=== PATIENT | male | born 1975 | race Caucasian/White ===

== ENCOUNTER 2019-08-26 12:17 | Inpatient (IN) | payer MEDICAID ==
[~2019-08-26] VITALS: Ht 185.4 cm; Wt 115.9 kg
[2019-08-26] MEDS ORDERED: labetalol 20mg/4ml (5mg/ml) syringe IV PRN (12:40)
[2019-08-26 13:02] LABS: BASOPHILS % (AUTO) 0.2 % (0-1); EOSINOPHILS # (AUTO) 0.1 X10'3 (0-0.9); EOSINOPHILS % (AUTO) 1.8 % (0-6); HEMATOCRIT 44.8 % (42.0-52.0); HEMOGLOBIN 15.3 g/dl (14.0-17.9); LYMPHOCYTES # (AUTO) 1.6 X10'3 (1.1-4.8); LYMPHOCYTES % (AUTO) 21.3 % (21-51); MEAN CORPUSCULAR HEMOGLOBIN 28.1 PG (27.0-31.0); MEAN CORPUSCULAR HGB CONC 34.1 g/dL (33.0-36.5); MEAN CORPUSCULAR VOLUME 82.3 FL (78-98); MEAN PLATELET VOLUME 8.9 FL (7.4-10.4); MONOCYTES # (AUTO) 0.4 X10'3 (0-0.9); NEUTROPHILS # (AUTO) 5.6 X10'3 (1.8-7.7); NEUTROPHILS % (AUTO) 71.7 % (42-75); PLATELET COUNT 188 X10'3 (140-440); RED BLOOD COUNT 5.44 X10'6 (4.70-6.10); RED CELL DISTRIBUTION WIDTH 14.4 % (11.5-14.5); WHITE BLOOD COUNT 7.8 X10'3 (4.5-11.0)
[2019-08-26 13:07] LABS: PARTIAL THROMBOPLASTIN TIME 25 SECONDS (22-32)
[2019-08-26 13:09] LABS: ALANINE AMINOTRANSFERASE 47 U/L (12-78); ALBUMIN 4.3 G/DL (3.4-5.0); ALKALINE PHOSPHATASE 90 IU/L (46-116); ANION GAP 9 (8-16); ASPARTATE AMINO TRANSFERASE 27 U/L (10-37); BILIRUBIN,TOTAL 0.8 MG/DL (0.1-1.0); BLOOD UREA NITROGEN 11 MG/DL (7-18); BUN/CREATININE RATIO 11.8 (5.4-32.0); CALCIUM 9.2 MG/DL (8.5-10.1); CHLORIDE 105 MMOL/L (99-107); CREATININE 0.93 MG/DL (0.60-1.10); GLUCOSE 122 MG/DL (70-104); POTASSIUM 3.5 MMOL/L (3.5-5.1); SODIUM 140 MMOL/L (135-145); TOTAL CARBON DIOXIDE 26.1 MMOL/L (24-32); TOTAL PROTEIN 8.6 G/DL (6.4-8.2); eGFR 88 ML/MIN
--- NOTE | 2019-08-26 13:24 | NUR ---
TELE NEURO IN PROGRESS.
[2019-08-26] MEDS ORDERED: aspirin 81mg tab.chew PO ONE (13:40)
[2019-08-26] MEDS ORDERED: MULT-955 PO (13:44)
[2019-08-26] MEDS ORDERED: ASPI-1265 PO (13:44)
[2019-08-26 13:53] LABS: CLARITY,URINE CLEAR (Clear); COLOR,URINE YELLOW (Yellow); GLUCOSE, URINE NEGATIVE (Neg); KETONES,URINE NEGATIVE (Neg); LEUKOCYTE ESTERASE ,URINE NEGATIVE (Neg); NITRITES, URINE NEGATIVE (Neg); OCCULT BLOOD,URINE NEGATIVE (Neg); PROTEIN,URINE NEGATIVE (Neg)
[2019-08-26 13:55] LABS: UA COLLECTION TYPE VOIDED
[2019-08-26 13:56] LABS: URINE AMPHETAMINE SCREEN NEGATIVE (Neg); URINE BARBITUATE SCREEN NEGATIVE (Neg); URINE BENZODIAZEPINES SCREEN NEGATIVE (Neg); URINE CANNABINOID SCREEN NEGATIVE (Neg); URINE COCAINE SCREEN NEGATIVE (Neg); URINE METHADONE SCREEN NEGATIVE (Neg); URINE OPIATE SCREEN NEGATIVE (Neg); URINE PHENCYCLIDINE SCREEN NEGATIVE (Neg)
[2019-08-26] MEDS ORDERED: magnesium 4gm in 100ml NS 100 ML IV PRN (15:00)
[2019-08-26] MEDS ORDERED: diphenhydrAMINE 50 mg/ml inj IV PRN (15:00)
[2019-08-26] MEDS ORDERED: bisacodyl 10mg suppository rectal RC PRN (15:00)
[2019-08-26] MEDS ORDERED: HYDROcodone/acetaminophen 5mg/325mg tablet PO PRN (15:00)
[2019-08-26] MEDS ORDERED: mag hydrox/Alum hydrox/simeth 30ml oral suspension PO PRN (15:00)
[2019-08-26] MEDS ORDERED: ondansetron/PF 4mg/2ml inj IV PRN (15:00)
[2019-08-26] MEDS ORDERED: metoclopramide 5 mg/ml inj IV PRN (15:00)
[2019-08-26] MEDS ORDERED: magnesium 2GM in 50ml NS 50 ML IV PRN (15:00)
[2019-08-26] MEDS ORDERED: acetaminophen 325mg tablet PO PRN ×2 (15:00)
[2019-08-26] MEDS ORDERED: diphenhydrAMINE 25mg capsule PO PRN (15:00)
[2019-08-26] MEDS ORDERED: magnesium hydroxide 30ml (MOM) UD suspension PO PRN (15:00)
[2019-08-26] MEDS ORDERED: potassium CL 10mEq/100ml bag 100 ML IV PRN ×2 (15:00)
[2019-08-26] MEDS ORDERED: magnesium Cl slow-release 64mg tablet PO PRN (15:00)
[2019-08-26] MEDS ORDERED: potassium Cl 20 mEq SR tablet PO PRN (15:00)
[2019-08-26] MEDS ORDERED: acetaminophen 650mg rectal suppository RC PRN (15:00)
--- NOTE | 2019-08-26 15:06 | NUR ---
report received from Karo COOL in the ER
[2019-08-26 15:30] VITALS: BP 180/102
[2019-08-26 15:32] LABS: HEMOGLOBIN A1C 5.8 % (4.5-6.2)
--- NOTE | 2019-08-26 15:46 | NUR ---
Paged hospitalist: [phone] patient needs Ativan or Xanax for MRI please, will continue to monitor
[2019-08-26] MEDS ORDERED: LORazepam 2 mg/ml vial IV PRN (16:10)
[2019-08-26 18:00] VITALS: BP 154/102
--- NOTE | 2019-08-26 18:15 | NUR ---
RECEIVED REPORT FROM UTE COOL AND ASSUMED PATIENT CARE
[2019-08-26] MEDS: K and/or MAG REPLACEMENT MC SCH (20:00)
[2019-08-26] MEDS ORDERED: temazepam 15mg capsule PO PRN (21:00)
[2019-08-26 22:00] VITALS: BP 157/11
[2019-08-27 02:00] VITALS: BP 166/67
[2019-08-27 06:00] VITALS: BP 150/105
--- NOTE | 2019-08-27 06:05 | NUR ---
received report from harvinder rosado
--- NOTE | 2019-08-27 06:20 | NUR ---
REPORT GIVEN TO MARGO COOL
[2019-08-27 06:30] LABS: HEMATOCRIT 40.3 % (42.0-52.0); HEMOGLOBIN 14.1 g/dl (14.0-17.9); MEAN CORPUSCULAR HEMOGLOBIN 28.4 PG (27.0-31.0); MEAN CORPUSCULAR VOLUME 81.3 FL (78-98); PLATELET COUNT 176 X10'3 (140-440); RED BLOOD COUNT 4.96 X10'6 (4.70-6.10); RED CELL DISTRIBUTION WIDTH 14.3 % (11.5-14.5); WHITE BLOOD COUNT 7.6 X10'3 (4.5-11.0)
[2019-08-27 06:49] LABS: ALBUMIN 3.7 G/DL (3.4-5.0); ANION GAP 10 (8-16); BLOOD UREA NITROGEN 10 MG/DL (7-18); BUN/CREATININE RATIO 13.3 (5.4-32.0); CALCIUM 8.8 MG/DL (8.5-10.1); CHLORIDE 106 MMOL/L (99-107); CHOLESTEROL 193 MG/DL (0-200); CREATININE 0.75 MG/DL (0.60-1.10); GLUCOSE 97 MG/DL (70-104); HDL CHOLESTEROL 48 MG/DL (35-60); LDL CHOLESTEROL 122 MG/DL (50-100); MAGNESIUM 1.9 MG/DL (1.5-2.4); POTASSIUM 3.4 MMOL/L (3.5-5.1); SODIUM 141 MMOL/L (135-145); TOTAL CARBON DIOXIDE 24.8 MMOL/L (24-32); TRIGLYCERIDES 131 MG/DL (20-135); eGFR > 90 ML/MIN
[2019-08-27 07:00] VITALS: BP 170/107
[2019-08-27] MEDS: K and/or MAG REPLACEMENT MC SCH (07:04)
[2019-08-27] MEDS: potassium Cl 20 mEq SR tablet PO PRN ×2 (07:07→11:13)
[2019-08-27 08:25] VITALS: BP 152/112
[2019-08-27] MEDS ORDERED: aspirin 81mg tablet.DR PO SCH (08:30)
[2019-08-27 10:00] VITALS: BP 159/106
[2019-08-27] MEDS ORDERED: FLU VACC QS2019-20 36MOS UP/PF 60 MCG/0.5 ML SYRINGE IMVAC ONE (10:00)
--- NOTE | 2019-08-27 13:53 | NUR ---
pt is refusing to have the flu shot, pt tells me that he 'doesn't like needles' so therefore he 'does not want the shot'
--- NOTE | 2019-08-27 16:00 | NUR ---
pt d/c with instructions, understanding of instructions and w/all belongings in wheelchair accompanied by nursing staff to private vehicle to go home and f/u w/pcp
== END 2019-08-27 16:35 | disposition home or self-care (01) | DRG 347 ==
LOC: ER 12:18 → ED HOLD 13:45 → UNDOADMIN 13:45 → ED HOLD 15:04 → ORTHO 4S 15:15 → ED HOLD 15:15
PROVIDERS: ADMIT Family Medicine; ATTEND Family Medicine
DX: M47.812 Spondylosis without myelopathy or radiculopathy, cervical region (principal); G62.9 Polyneuropathy, unspecified; E78.5 Hyperlipidemia, unspecified; E87.6 Hypokalemia; G40.909 Epilepsy, unspecified, not intractable, without status epilepticus; I10 Essential (primary) hypertension; Z88.0 Allergy status to penicillin; Z88.2 Allergy status to sulfonamides
CPT/HCPCS: 36415; 70450; 70544; 70551; 71045; 72141; 80048; 80053; 80061; 80305; 81003; 82948; 83036; 83735; 84443; 85025; 85027; 85610; 85730; 86885; 86900; 86901; 87081; 92508; 92616; 93005; 93306; 93880; 97110; 97161; 97530; 99285; G0378; J2060; Q2037

== ENCOUNTER 2019-09-30 09:29 | Day surgery (SDC) | payer MEDICAID ==
[2019-09-26 12:09] LABS: BASOPHILS % (AUTO) 0.2 % (0-1); EOSINOPHILS # (AUTO) 0.1 X10'3 (0-0.9); EOSINOPHILS % (AUTO) 1.9 % (0-6); LYMPHOCYTES # (AUTO) 1.5 X10'3 (1.1-4.8); LYMPHOCYTES % (AUTO) 20.5 % (21-51); MEAN CORPUSCULAR HEMOGLOBIN 27.7 PG (27.0-31.0); MEAN CORPUSCULAR HGB CONC 34.3 g/dL (33.0-36.5); MEAN CORPUSCULAR VOLUME 80.8 FL (78-98); MONOCYTES # (AUTO) 0.5 X10'3 (0-0.9); MONOCYTES % (AUTO) 6.7 % (2-12); NEUTROPHILS # (AUTO) 5.3 X10'3 (1.8-7.7); NEUTROPHILS % (AUTO) 70.7 % (42-75); PRE OP HEMATOCRIT 43.2 % (42.0-52.0); PRE OP HEMOGLOBIN 14.8 g/dL (14.0-17.9); PRE OP PLATELET COUNT 172 X10'3 (140-440); RED BLOOD COUNT 5.35 X10'6 (4.70-6.10)
[2019-09-26 12:20] LABS: ALBUMIN 4.1 G/DL (3.4-5.0); ALBUMIN/GLOBULIN RATIO 1.1 (1.1-1.5); ALKALINE PHOSPHATASE 90 IU/L (46-116); BLOOD UREA NITROGEN 12 MG/DL (7-18); BUN/CREATININE RATIO 12.9 (5.4-32.0); CALCIUM 9.1 MG/DL (8.5-10.1); CHLORIDE 106 MMOL/L (99-107); CREATININE 0.93 MG/DL (0.60-1.10); PRE OP ALT 51 U/L (30-65); PRE OP ANION GAP 6 (8-16); PRE OP AST 25 U/L (10-37); PRE OP BILIRUB, TOTAL 0.8 MG/DL (0.0-1.0); PRE OP GLUCOSE 97 MG/DL (70-104); PRE OP POTASSIUM 3.6 MMOL/L (3.4-5.1); PRE OP SODIUM 142 MMOL/L (135-145); TOTAL CARBON DIOXIDE 30.4 MMOL/L (24-32); eGFR 88 ML/MIN
[2019-09-26 12:22] LABS: CLARITY,URINE CLEAR (Clear); COLOR,URINE YELLOW (Yellow); GLUCOSE, URINE NEGATIVE (Neg); KETONES,URINE NEGATIVE (Neg); LEUKOCYTE ESTERASE ,URINE NEGATIVE (Neg); NITRITES, URINE NEGATIVE (Neg); OCCULT BLOOD,URINE NEGATIVE (Neg); PROTEIN,URINE NEGATIVE (Neg); UA COLLECTION TYPE CLN CATCH MIDSTREAM; UROBILINOGEN,URINE 0.2 E.U/dL (0.2-1.0)
[~2019-09-30] VITALS: Ht 185.4 cm; Wt 113.4 kg
[2019-09-30] VITALS (10 sets, daily range): BP systolic 124–148; BP diastolic 84–102
[~2019-09-30 09:29] MED LIST: ASPI-1265 PO; GENTAMICIN IV ONE; NORMAL SALINE IV ONE; clindamycin-Cleocin 900mg/D5W 50 ML IV ONE; famotidine 10mg tablet PO ONE; ringers solution, lacted 1,000 ML IV SCH
[2019-09-30] MEDS ORDERED: ringers solution, lacted 1,000 ML IV SCH (10:56)
[2019-09-30] MEDS ORDERED: HYDROmorphone inj. 0.5 MG/0.5 ML DISP.SYRIN IV PRN ×2 (11:00)
[2019-09-30] MEDS ORDERED: acetaminophen 1,000mg/100ml IV 100 ML IV PRN (11:00)
[2019-09-30] MEDS ORDERED: morphine 4 MG/ML inj SYRINge IV PRN ×2 (11:00)
[2019-09-30] MEDS ORDERED: ondansetron/PF 4mg/2ml inj IV PRN (11:00)
[2019-09-30] MEDS ORDERED: BUPIVAcaine/PF 2.5 mg/ml (0.25%) 30ml vial ONE (11:37)
[2019-09-30] MEDS ORDERED: methylene blue (5mg/ml) 50mg/10ml ampul IV ONE ×2 (11:38→12:15)
[2019-09-30] MEDS ORDERED: sevoflurane 250ml liquid IH ONE (11:42)
[2019-09-30] MEDS ORDERED: midazolam 2 mg/2 ml injection ONE (11:46)
[2019-09-30] MEDS ORDERED: rocuronium 10mg/ml inj IV ONE (11:46)
[2019-09-30] MEDS ORDERED: propofol inj 20 ML IV ONE (11:46)
[2019-09-30] MEDS ORDERED: fentaNYL/PF 50MCG/1 ML 2ML syringe ONE ×2 (11:46→12:12)
[2019-09-30] MEDS ORDERED: labetalol 20mg/4ml (5mg/ml) syringe IV ONE (12:13)
[2019-09-30] MEDS ORDERED: povidone-iodine 10% topical ointment 28.4gm TP ONE (12:29)
[2019-09-30] MEDS ORDERED: sugammadex 200mg/2ml injection IV ONE (12:33)
--- NOTE | 2019-09-30 12:48 | NUR ---
Received from OR via , accompanied by Anesthesiologist JAVID and report given by Anesthesiolgist. AWAKENS EASILY IN NO RESP DISTRESS SKIN WARM AND DRY HOB ELEVATED ABD SOFT DSG DI, NO CO PAIN.
--- NOTE | 2019-09-30 14:38 | NUR ---
AWAKE VS WNL NO CO PAIN, DSG WITH SM-MOD SSD, DISCH INSTR GIVEN TO PT AND UNDERSTOOD, HOME.
== END 2019-09-30 14:38 | disposition home or self-care (01) ==
LOC: PAS 09:29
PROVIDERS: ATTEND Surgery
DX: L05.01 Pilonidal cyst with abscess (principal); J45.909 Unspecified asthma, uncomplicated; M19.90 Unspecified osteoarthritis, unspecified site; I10 Essential (primary) hypertension; G62.9 Polyneuropathy, unspecified; E66.9 Obesity, unspecified; Z68.33 Body mass index [BMI] 33.0-33.9, adult; Z98.890 Other specified postprocedural states; Z88.2 Allergy status to sulfonamides; Z88.0 Allergy status to penicillin; Z79.82 Long term (current) use of aspirin; Z79.899 Other long term (current) drug therapy
CPT/HCPCS: 11771; 36415; 80053; 81003; 82948; 85025; A6224; C9399; J1580; J2250; J2704; J3010; J3490; J3590; Q9968; A4215; A4618; A6258; A6449; A7000; J7120

== ENCOUNTER 2019-10-30 09:50 | Outpatient (CLI) | payer MEDICAID ==
[~2019-10-30 09:50] MED LIST changes: -GENTAMICIN IV ONE; -NORMAL SALINE IV ONE; -clindamycin-Cleocin 900mg/D5W 50 ML IV ONE; -famotidine 10mg tablet PO ONE; -ringers solution, lacted 1,000 ML IV SCH
[2019-10-30] MEDS ORDERED: LIDOcaine 2% 5ml jelly ONE (10:19)
== END 2019-10-30 10:43 | disposition home or self-care (01) ==
LOC: WOUND CARE 09:50 → EDSTATUS 10:00 → WOUND CARE 10:43
PROVIDERS: ATTEND Surgery
DX: T81.89XD Other complications of procedures, not elsewhere classified, subsequent encounter (principal); L98.492 Non-pressure chronic ulcer of skin of other sites with fat layer exposed; L76.34 Postprocedural seroma of skin and subcutaneous tissue following other procedure; G62.9 Polyneuropathy, unspecified; I10 Essential (primary) hypertension; E66.9 Obesity, unspecified; J45.909 Unspecified asthma, uncomplicated; M19.90 Unspecified osteoarthritis, unspecified site; F32.9 Major depressive disorder, single episode, unspecified; Z79.899 Other long term (current) drug therapy; Z68.33 Body mass index [BMI] 33.0-33.9, adult; Z79.82 Long term (current) use of aspirin; Z98.890 Other specified postprocedural states; Y83.8 Other surgical procedures as the cause of abnormal reaction of the patient, or of later complication, without mention of misadventure at the time of the procedure
CPT/HCPCS: G0463

== ENCOUNTER 2019-11-13 10:38 | Day surgery (SDC) | payer MEDICAID ==
[2019-11-13] MEDS ORDERED: LIDOcaine 2% 5ml jelly ONE (11:17)
== END 2019-11-13 11:54 | disposition home or self-care (01) ==
LOC: WOUND CARE 10:38
PROVIDERS: ATTEND Surgery
DX: T81.89XD Other complications of procedures, not elsewhere classified, subsequent encounter (principal); L98.492 Non-pressure chronic ulcer of skin of other sites with fat layer exposed; L76.34 Postprocedural seroma of skin and subcutaneous tissue following other procedure; G62.9 Polyneuropathy, unspecified; I10 Essential (primary) hypertension; E66.9 Obesity, unspecified; J45.909 Unspecified asthma, uncomplicated; M19.90 Unspecified osteoarthritis, unspecified site; F32.9 Major depressive disorder, single episode, unspecified; Z79.899 Other long term (current) drug therapy; Z68.33 Body mass index [BMI] 33.0-33.9, adult; Z79.82 Long term (current) use of aspirin; Z98.890 Other specified postprocedural states; Y83.8 Other surgical procedures as the cause of abnormal reaction of the patient, or of later complication, without mention of misadventure at the time of the procedure
CPT/HCPCS: 36416; 97597

== ENCOUNTER 2019-11-20 09:40 | Day surgery (SDC) | payer MEDICAID ==
[2019-11-20] MEDS ORDERED: LIDOcaine 2% 5ml jelly ONE (11:46)
== END 2019-11-20 12:14 | disposition home or self-care (01) ==
LOC: WOUND CARE 09:40
PROVIDERS: ATTEND Surgery
DX: T81.89XD Other complications of procedures, not elsewhere classified, subsequent encounter (principal); L98.492 Non-pressure chronic ulcer of skin of other sites with fat layer exposed; L76.34 Postprocedural seroma of skin and subcutaneous tissue following other procedure; I10 Essential (primary) hypertension; G62.9 Polyneuropathy, unspecified; E66.9 Obesity, unspecified; J45.909 Unspecified asthma, uncomplicated; M19.90 Unspecified osteoarthritis, unspecified site; F32.9 Major depressive disorder, single episode, unspecified; Z68.34 Body mass index [BMI] 34.0-34.9, adult; Z79.899 Other long term (current) drug therapy; Z79.82 Long term (current) use of aspirin; Z98.890 Other specified postprocedural states; Z90.49 Acquired absence of other specified parts of digestive tract; Z88.0 Allergy status to penicillin; Z88.2 Allergy status to sulfonamides; Y83.8 Other surgical procedures as the cause of abnormal reaction of the patient, or of later complication, without mention of misadventure at the time of the procedure
CPT/HCPCS: 97597; A4663; A6021

== ENCOUNTER 2019-11-27 09:37 | Day surgery (SDC) | payer MEDICAID ==
[2019-11-27] MEDS ORDERED: LIDOcaine 2% 5ml jelly ONE (10:17)
== END 2019-11-27 10:35 | disposition home or self-care (01) ==
LOC: WOUND CARE 09:37
PROVIDERS: ATTEND Surgery
DX: T81.89XD Other complications of procedures, not elsewhere classified, subsequent encounter (principal); L98.492 Non-pressure chronic ulcer of skin of other sites with fat layer exposed; L76.34 Postprocedural seroma of skin and subcutaneous tissue following other procedure; I10 Essential (primary) hypertension; G62.9 Polyneuropathy, unspecified; E66.9 Obesity, unspecified; J45.909 Unspecified asthma, uncomplicated; M19.90 Unspecified osteoarthritis, unspecified site; F32.9 Major depressive disorder, single episode, unspecified; Z68.34 Body mass index [BMI] 34.0-34.9, adult; Z79.899 Other long term (current) drug therapy; Z79.82 Long term (current) use of aspirin; Z98.890 Other specified postprocedural states; Z90.49 Acquired absence of other specified parts of digestive tract; Z88.0 Allergy status to penicillin; Z88.2 Allergy status to sulfonamides; Y83.8 Other surgical procedures as the cause of abnormal reaction of the patient, or of later complication, without mention of misadventure at the time of the procedure
CPT/HCPCS: 97597; A4663; A6021

== ENCOUNTER 2019-12-04 10:05 | Day surgery (SDC) | payer MEDICAID ==
[2019-12-04] MEDS ORDERED: LIDOcaine 2% 5ml jelly ONE (10:11)
== END 2019-12-04 10:51 | disposition home or self-care (01) ==
LOC: WOUND CARE 10:05
PROVIDERS: ATTEND Surgery
DX: T81.89XD Other complications of procedures, not elsewhere classified, subsequent encounter (principal); L98.492 Non-pressure chronic ulcer of skin of other sites with fat layer exposed; L76.34 Postprocedural seroma of skin and subcutaneous tissue following other procedure; I10 Essential (primary) hypertension; G62.9 Polyneuropathy, unspecified; E66.9 Obesity, unspecified; J45.909 Unspecified asthma, uncomplicated; M19.90 Unspecified osteoarthritis, unspecified site; F32.9 Major depressive disorder, single episode, unspecified; Z68.34 Body mass index [BMI] 34.0-34.9, adult; Z79.899 Other long term (current) drug therapy; Z79.82 Long term (current) use of aspirin; Z98.890 Other specified postprocedural states; Z90.49 Acquired absence of other specified parts of digestive tract; Z88.0 Allergy status to penicillin; Z88.2 Allergy status to sulfonamides; Y83.8 Other surgical procedures as the cause of abnormal reaction of the patient, or of later complication, without mention of misadventure at the time of the procedure
CPT/HCPCS: 97597

== ENCOUNTER 2019-12-12 09:40 | Day surgery (SDC) | payer MEDICAID ==
[2019-12-12] MEDS ORDERED: LIDOcaine 2% 5ml jelly ONE (09:55)
== END 2019-12-12 10:19 | disposition home or self-care (01) ==
LOC: WOUND CARE 09:40
PROVIDERS: ATTEND Surgery
DX: T81.89XD Other complications of procedures, not elsewhere classified, subsequent encounter (principal); L98.492 Non-pressure chronic ulcer of skin of other sites with fat layer exposed; L76.34 Postprocedural seroma of skin and subcutaneous tissue following other procedure; I10 Essential (primary) hypertension; G62.9 Polyneuropathy, unspecified; E66.9 Obesity, unspecified; J45.909 Unspecified asthma, uncomplicated; M19.90 Unspecified osteoarthritis, unspecified site; F32.9 Major depressive disorder, single episode, unspecified; Z68.34 Body mass index [BMI] 34.0-34.9, adult; Z79.899 Other long term (current) drug therapy; Z79.82 Long term (current) use of aspirin; Z98.890 Other specified postprocedural states; Z90.49 Acquired absence of other specified parts of digestive tract; Z88.0 Allergy status to penicillin; Z88.2 Allergy status to sulfonamides; Y83.8 Other surgical procedures as the cause of abnormal reaction of the patient, or of later complication, without mention of misadventure at the time of the procedure
CPT/HCPCS: 97597

== ENCOUNTER 2019-12-26 09:48 | Day surgery (SDC) | payer MEDICAID | END 2019-12-26 11:18 | disposition home or self-care (01) | LOC: WOUND CARE 09:48 | PROVIDERS: ATTEND Nurse Practitioner | DX: T81.89XD Other complications of procedures, not elsewhere classified, subsequent encounter (principal); L98.492 Non-pressure chronic ulcer of skin of other sites with fat layer exposed; L76.34 Postprocedural seroma of skin and subcutaneous tissue following other procedure; I10 Essential (primary) hypertension; G62.9 Polyneuropathy, unspecified; E66.9 Obesity, unspecified; J45.909 Unspecified asthma, uncomplicated; M19.90 Unspecified osteoarthritis, unspecified site; F32.9 Major depressive disorder, single episode, unspecified; Z68.34 Body mass index [BMI] 34.0-34.9, adult; Z79.899 Other long term (current) drug therapy; Z79.82 Long term (current) use of aspirin; Z98.890 Other specified postprocedural states; Z90.49 Acquired absence of other specified parts of digestive tract; Y83.8 Other surgical procedures as the cause of abnormal reaction of the patient, or of later complication, without mention of misadventure at the time of the procedure | CPT/HCPCS: G0463 ==

== ENCOUNTER 2019-12-29 13:49 | Day surgery (SDC) | payer MEDICAID ==
[2019-12-29] MEDS ORDERED: LIDOcaine 2% 5ml jelly ONE (13:52)
== END 2019-12-29 14:42 | disposition home or self-care (01) ==
LOC: WOUND CARE 13:49
PROVIDERS: ATTEND Nurse Practitioner
DX: T81.89XD Other complications of procedures, not elsewhere classified, subsequent encounter (principal); L98.492 Non-pressure chronic ulcer of skin of other sites with fat layer exposed; L76.34 Postprocedural seroma of skin and subcutaneous tissue following other procedure; I10 Essential (primary) hypertension; G62.9 Polyneuropathy, unspecified; E66.9 Obesity, unspecified; J45.909 Unspecified asthma, uncomplicated; M19.90 Unspecified osteoarthritis, unspecified site; F32.9 Major depressive disorder, single episode, unspecified; Z68.34 Body mass index [BMI] 34.0-34.9, adult; Z79.899 Other long term (current) drug therapy; Z79.82 Long term (current) use of aspirin; Z98.890 Other specified postprocedural states; Z90.49 Acquired absence of other specified parts of digestive tract; Y83.8 Other surgical procedures as the cause of abnormal reaction of the patient, or of later complication, without mention of misadventure at the time of the procedure
CPT/HCPCS: G0463

== ENCOUNTER 2020-01-05 13:20 | Outpatient (CLI) | payer MEDICAID ==
[2020-01-05] MEDS ORDERED: LIDOcaine 2% 5ml jelly ONE (13:37)
== END 2020-01-05 13:58 | disposition home or self-care (01) ==
LOC: WOUND CARE 13:20 → EDSTATUS 13:20 → WOUND CARE 13:58
PROVIDERS: ATTEND Nurse Practitioner
DX: T81.89XD Other complications of procedures, not elsewhere classified, subsequent encounter (principal); L98.492 Non-pressure chronic ulcer of skin of other sites with fat layer exposed; L76.34 Postprocedural seroma of skin and subcutaneous tissue following other procedure; I10 Essential (primary) hypertension; G62.9 Polyneuropathy, unspecified; E66.9 Obesity, unspecified; J45.909 Unspecified asthma, uncomplicated; M19.90 Unspecified osteoarthritis, unspecified site; F32.9 Major depressive disorder, single episode, unspecified; Z68.34 Body mass index [BMI] 34.0-34.9, adult; Z79.899 Other long term (current) drug therapy; Z79.82 Long term (current) use of aspirin; Z98.890 Other specified postprocedural states; Z90.49 Acquired absence of other specified parts of digestive tract; Y83.8 Other surgical procedures as the cause of abnormal reaction of the patient, or of later complication, without mention of misadventure at the time of the procedure
CPT/HCPCS: G0463

== ENCOUNTER 2020-01-12 13:36 | Day surgery (SDC) | payer MEDICAID ==
[2020-01-12] MEDS ORDERED: LIDOcaine 2% 5ml jelly ONE (13:58)
== END 2020-01-12 14:27 | disposition home or self-care (01) ==
LOC: WOUND CARE 13:36 → EDSTATUS 13:40 → WOUND CARE 14:27
PROVIDERS: ATTEND Nurse Practitioner
DX: T81.89XD Other complications of procedures, not elsewhere classified, subsequent encounter (principal); L98.492 Non-pressure chronic ulcer of skin of other sites with fat layer exposed; L76.34 Postprocedural seroma of skin and subcutaneous tissue following other procedure; I10 Essential (primary) hypertension; G62.9 Polyneuropathy, unspecified; E66.9 Obesity, unspecified; J45.909 Unspecified asthma, uncomplicated; M19.90 Unspecified osteoarthritis, unspecified site; F32.9 Major depressive disorder, single episode, unspecified; Z68.34 Body mass index [BMI] 34.0-34.9, adult; Z79.899 Other long term (current) drug therapy; Z79.82 Long term (current) use of aspirin; Z98.890 Other specified postprocedural states; Z90.49 Acquired absence of other specified parts of digestive tract; Y83.8 Other surgical procedures as the cause of abnormal reaction of the patient, or of later complication, without mention of misadventure at the time of the procedure
CPT/HCPCS: 97597

== ENCOUNTER 2020-01-19 13:29 | Day surgery (SDC) | payer MEDICAID ==
[2020-01-19] MEDS ORDERED: LIDOcaine 2% 5ml jelly ONE (13:41)
== END 2020-01-19 14:11 | disposition home or self-care (01) ==
LOC: WOUND CARE 13:29
PROVIDERS: ATTEND Nurse Practitioner
DX: T81.89XD Other complications of procedures, not elsewhere classified, subsequent encounter (principal); L98.492 Non-pressure chronic ulcer of skin of other sites with fat layer exposed; L76.34 Postprocedural seroma of skin and subcutaneous tissue following other procedure; I10 Essential (primary) hypertension; G62.9 Polyneuropathy, unspecified; E66.9 Obesity, unspecified; J45.909 Unspecified asthma, uncomplicated; M19.90 Unspecified osteoarthritis, unspecified site; F32.9 Major depressive disorder, single episode, unspecified; Z68.34 Body mass index [BMI] 34.0-34.9, adult; Z79.899 Other long term (current) drug therapy; Z79.82 Long term (current) use of aspirin; Z98.890 Other specified postprocedural states; Z90.49 Acquired absence of other specified parts of digestive tract; Y83.8 Other surgical procedures as the cause of abnormal reaction of the patient, or of later complication, without mention of misadventure at the time of the procedure
CPT/HCPCS: 97597

== ENCOUNTER 2020-01-26 13:20 | Day surgery (SDC) | payer MEDICAID ==
[2020-01-26] MEDS ORDERED: LIDOcaine 2% 5ml jelly ONE (13:31)
== END 2020-01-26 14:16 | disposition home or self-care (01) ==
LOC: WOUND CARE 13:20
PROVIDERS: ATTEND Nurse Practitioner
DX: T81.89XD Other complications of procedures, not elsewhere classified, subsequent encounter (principal); L98.492 Non-pressure chronic ulcer of skin of other sites with fat layer exposed; L76.34 Postprocedural seroma of skin and subcutaneous tissue following other procedure; I10 Essential (primary) hypertension; G62.9 Polyneuropathy, unspecified; E66.9 Obesity, unspecified; J45.909 Unspecified asthma, uncomplicated; M19.90 Unspecified osteoarthritis, unspecified site; F32.9 Major depressive disorder, single episode, unspecified; Z68.34 Body mass index [BMI] 34.0-34.9, adult; Z79.899 Other long term (current) drug therapy; Z79.82 Long term (current) use of aspirin; Z98.890 Other specified postprocedural states; Z90.49 Acquired absence of other specified parts of digestive tract; Y83.8 Other surgical procedures as the cause of abnormal reaction of the patient, or of later complication, without mention of misadventure at the time of the procedure
CPT/HCPCS: 97597

== ENCOUNTER 2020-02-12 09:10 | Day surgery (SDC) | payer MEDICAID | END 2020-02-12 11:09 | disposition home or self-care (01) | LOC: WOUND CARE 09:10 | PROVIDERS: ATTEND Nurse Practitioner | DX: T81.89XD Other complications of procedures, not elsewhere classified, subsequent encounter (principal); L98.492 Non-pressure chronic ulcer of skin of other sites with fat layer exposed; L76.34 Postprocedural seroma of skin and subcutaneous tissue following other procedure; I10 Essential (primary) hypertension; G62.9 Polyneuropathy, unspecified; E66.9 Obesity, unspecified; J45.909 Unspecified asthma, uncomplicated; M19.90 Unspecified osteoarthritis, unspecified site; F32.9 Major depressive disorder, single episode, unspecified; Z68.34 Body mass index [BMI] 34.0-34.9, adult; Z79.899 Other long term (current) drug therapy; Z79.82 Long term (current) use of aspirin; Z98.890 Other specified postprocedural states; Z90.49 Acquired absence of other specified parts of digestive tract; Y83.8 Other surgical procedures as the cause of abnormal reaction of the patient, or of later complication, without mention of misadventure at the time of the procedure | CPT/HCPCS: 97597 ==

== ENCOUNTER 2020-02-19 08:22 | Day surgery (SDC) | payer MEDICAID ==
[2020-02-19] MEDS ORDERED: LIDOcaine 2% 5ml jelly ONE (08:36)
== END 2020-02-19 09:24 | disposition home or self-care (01) ==
LOC: WOUND CARE 08:22
PROVIDERS: ATTEND Nurse Practitioner
DX: T81.89XD Other complications of procedures, not elsewhere classified, subsequent encounter (principal); L98.492 Non-pressure chronic ulcer of skin of other sites with fat layer exposed; L76.34 Postprocedural seroma of skin and subcutaneous tissue following other procedure; I10 Essential (primary) hypertension; G62.9 Polyneuropathy, unspecified; E66.9 Obesity, unspecified; J45.909 Unspecified asthma, uncomplicated; M19.90 Unspecified osteoarthritis, unspecified site; F32.9 Major depressive disorder, single episode, unspecified; Z68.34 Body mass index [BMI] 34.0-34.9, adult; Z79.899 Other long term (current) drug therapy; Z79.82 Long term (current) use of aspirin; Z98.890 Other specified postprocedural states; Z90.49 Acquired absence of other specified parts of digestive tract; Y83.8 Other surgical procedures as the cause of abnormal reaction of the patient, or of later complication, without mention of misadventure at the time of the procedure
CPT/HCPCS: 97597

== ENCOUNTER 2020-02-19 14:09 | Emergency (ER) | payer MEDICAID ==
[~2020-02-19] VITALS: Ht 182.9 cm; Wt 113.6 kg
[2020-02-19 14:43] LABS: BASOPHILS % (AUTO) 0.2 % (0-1); EOSINOPHILS # (AUTO) 0.1 X10'3 (0-0.9); EOSINOPHILS % (AUTO) 0.7 % (0-6); HEMATOCRIT 41.4 % (42.0-52.0); HEMOGLOBIN 13.7 g/dl (14.0-17.9); LYMPHOCYTES # (AUTO) 1.2 X10'3 (1.1-4.8); LYMPHOCYTES % (AUTO) 13.7 % (21-51); MEAN CORPUSCULAR HEMOGLOBIN 26.7 PG (27.0-31.0); MEAN CORPUSCULAR HGB CONC 33.1 g/dL (33.0-36.5); MEAN CORPUSCULAR VOLUME 80.7 FL (78-98); MONOCYTES # (AUTO) 0.6 X10'3 (0-0.9); MONOCYTES % (AUTO) 6.8 % (2-12); NEUTROPHILS # (AUTO) 7.1 X10'3 (1.8-7.7); NEUTROPHILS % (AUTO) 78.6 % (42-75); PLATELET COUNT 194 X10'3 (140-440); RED BLOOD COUNT 5.14 X10'6 (4.70-6.10); RED CELL DISTRIBUTION WIDTH 13.8 % (11.5-14.5)
[2020-02-19 14:58] LABS: ALANINE AMINOTRANSFERASE 39 U/L (12-78); ALBUMIN/GLOBULIN RATIO 0.9 (1.1-1.5); ALKALINE PHOSPHATASE 97 IU/L (46-116); ANION GAP 9 (8-16); ASPARTATE AMINO TRANSFERASE 24 U/L (10-37); BILIRUBIN,TOTAL 0.4 MG/DL (0.1-1.0); BLOOD UREA NITROGEN 11 MG/DL (7-18); BUN/CREATININE RATIO 9.2 (5.4-32.0); CALCIUM 9.1 MG/DL (8.5-10.1); CHLORIDE 109 MMOL/L (99-107); GLUCOSE 137 MG/DL (70-104); POTASSIUM 3.6 MMOL/L (3.5-5.1); SODIUM 144 MMOL/L (135-145); TOTAL PROTEIN 8.3 G/DL (6.4-8.2); eGFR 66 ML/MIN
[2020-02-19 15:33] VITALS: BP 157/101
== END 2020-02-19 16:00 | disposition home or self-care (01) ==
LOC: ER 14:09
DX: G47.00 Insomnia, unspecified (principal); R53.1 Weakness; G62.9 Polyneuropathy, unspecified; Z86.69 Personal history of other diseases of the nervous system and sense organs; Z60.2 Problems related to living alone; Z88.0 Allergy status to penicillin; Z88.2 Allergy status to sulfonamides; Z72.89 Other problems related to lifestyle
CPT/HCPCS: 36415; 80053; 85025; 93005; 99284

== ENCOUNTER 2020-02-26 08:15 | Day surgery (SDC) | payer MEDICAID ==
[2020-02-26] MEDS ORDERED: LIDOcaine 2% 5ml jelly ONE (08:27)
== END 2020-02-26 08:45 | disposition home or self-care (01) ==
LOC: WOUND CARE 08:15
PROVIDERS: ATTEND Nurse Practitioner
DX: T81.89XD Other complications of procedures, not elsewhere classified, subsequent encounter (principal); L98.492 Non-pressure chronic ulcer of skin of other sites with fat layer exposed; L76.34 Postprocedural seroma of skin and subcutaneous tissue following other procedure; I10 Essential (primary) hypertension; G62.9 Polyneuropathy, unspecified; E66.9 Obesity, unspecified; J45.909 Unspecified asthma, uncomplicated; M19.90 Unspecified osteoarthritis, unspecified site; F32.9 Major depressive disorder, single episode, unspecified; Z68.34 Body mass index [BMI] 34.0-34.9, adult; Z79.899 Other long term (current) drug therapy; Z79.82 Long term (current) use of aspirin; Z98.890 Other specified postprocedural states; Z90.49 Acquired absence of other specified parts of digestive tract; Y83.8 Other surgical procedures as the cause of abnormal reaction of the patient, or of later complication, without mention of misadventure at the time of the procedure
CPT/HCPCS: 97597

== ENCOUNTER 2020-03-04 08:20 | Day surgery (SDC) | payer MEDICAID ==
[2020-03-04] MEDS ORDERED: LIDOcaine 2% 5ml jelly ONE ×2 (08:41→08:49)
== END 2020-03-04 09:18 | disposition home or self-care (01) ==
LOC: WOUND CARE 08:20
PROVIDERS: ATTEND Nurse Practitioner
DX: T81.89XD Other complications of procedures, not elsewhere classified, subsequent encounter (principal); L98.492 Non-pressure chronic ulcer of skin of other sites with fat layer exposed; L76.34 Postprocedural seroma of skin and subcutaneous tissue following other procedure; I10 Essential (primary) hypertension; G62.9 Polyneuropathy, unspecified; E66.9 Obesity, unspecified; J45.909 Unspecified asthma, uncomplicated; M19.90 Unspecified osteoarthritis, unspecified site; F32.9 Major depressive disorder, single episode, unspecified; Z68.34 Body mass index [BMI] 34.0-34.9, adult; Z79.899 Other long term (current) drug therapy; Z79.82 Long term (current) use of aspirin; Z98.890 Other specified postprocedural states; Z90.49 Acquired absence of other specified parts of digestive tract; Y83.8 Other surgical procedures as the cause of abnormal reaction of the patient, or of later complication, without mention of misadventure at the time of the procedure
CPT/HCPCS: 97597

== ENCOUNTER 2020-03-09 04:09 | Emergency (ER) | payer MEDICAID ==
[~2020-03-09] VITALS: Ht 185.4 cm; Wt 115.0 kg
[2020-03-09 04:47] LABS: BASOPHILS % (AUTO) 0.4 % (0-1); EOSINOPHILS # (AUTO) 0.1 X10'3 (0-0.9); EOSINOPHILS % (AUTO) 1.9 % (0-6); HEMATOCRIT 38.7 % (42.0-52.0); HEMOGLOBIN 12.8 g/dl (14.0-17.9); LYMPHOCYTES # (AUTO) 1.7 X10'3 (1.1-4.8); LYMPHOCYTES % (AUTO) 26.4 % (21-51); MEAN CORPUSCULAR HEMOGLOBIN 26.6 PG (27.0-31.0); MEAN CORPUSCULAR VOLUME 80.5 FL (78-98); MEAN PLATELET VOLUME 8.8 FL (7.4-10.4); MONOCYTES # (AUTO) 0.5 X10'3 (0-0.9); MONOCYTES % (AUTO) 7.8 % (2-12); NEUTROPHILS # (AUTO) 4.1 X10'3 (1.8-7.7); NEUTROPHILS % (AUTO) 63.5 % (42-75); PLATELET COUNT 188 X10'3 (140-440); RED BLOOD COUNT 4.81 X10'6 (4.70-6.10); RED CELL DISTRIBUTION WIDTH 14.2 % (11.5-14.5); WHITE BLOOD COUNT 6.5 X10'3 (4.5-11.0)
[2020-03-09 04:58] LABS: ALANINE AMINOTRANSFERASE 40 U/L (12-78); ALBUMIN 3.6 G/DL (3.4-5.0); ALBUMIN/GLOBULIN RATIO 0.9 (1.1-1.5); ALKALINE PHOSPHATASE 96 IU/L (46-116); ANION GAP 9 (8-16); ASPARTATE AMINO TRANSFERASE 25 U/L (10-37); BILIRUBIN,TOTAL 0.5 MG/DL (0.1-1.0); BLOOD UREA NITROGEN 10 MG/DL (7-18); BUN/CREATININE RATIO 9.3 (5.4-32.0); CHLORIDE 108 MMOL/L (99-107); CREATININE 1.07 MG/DL (0.60-1.10); GLUCOSE 101 MG/DL (70-104); POTASSIUM 3.7 MMOL/L (3.5-5.1); SODIUM 144 MMOL/L (135-145); TOTAL CARBON DIOXIDE 27.1 MMOL/L (24-32); TOTAL PROTEIN 7.6 G/DL (6.4-8.2); eGFR 75 ML/MIN
[2020-03-09 05:02] LABS: MAGNESIUM 2.1 MG/DL (1.5-2.4); TROPONIN I < 0.04 NG/ML (0.0-0.05)
[2020-03-09 05:33] VITALS: BP 152/98
== END 2020-03-09 05:34 | disposition home or self-care (01) ==
LOC: ER 04:09
DX: I10 Essential (primary) hypertension (principal); Z86.69 Personal history of other diseases of the nervous system and sense organs; Z60.2 Problems related to living alone; Z88.0 Allergy status to penicillin; Z88.2 Allergy status to sulfonamides; Z79.82 Long term (current) use of aspirin
CPT/HCPCS: 36415; 80053; 83735; 84484; 85025; 93005; 99284

== ENCOUNTER 2020-03-11 08:20 | Day surgery (SDC) | payer MEDICAID ==
[2020-03-11] MEDS ORDERED: LIDOcaine 2% 5ml jelly ONE (08:59)
== END 2020-03-11 09:40 | disposition home or self-care (01) ==
LOC: WOUND CARE 08:20
PROVIDERS: ATTEND Nurse Practitioner
DX: T81.89XD Other complications of procedures, not elsewhere classified, subsequent encounter (principal); L98.492 Non-pressure chronic ulcer of skin of other sites with fat layer exposed; L76.34 Postprocedural seroma of skin and subcutaneous tissue following other procedure; I10 Essential (primary) hypertension; G62.9 Polyneuropathy, unspecified; E66.9 Obesity, unspecified; J45.909 Unspecified asthma, uncomplicated; M19.90 Unspecified osteoarthritis, unspecified site; F32.9 Major depressive disorder, single episode, unspecified; Z68.34 Body mass index [BMI] 34.0-34.9, adult; Z79.899 Other long term (current) drug therapy; Z79.82 Long term (current) use of aspirin; Z98.890 Other specified postprocedural states; Z90.49 Acquired absence of other specified parts of digestive tract; Y83.8 Other surgical procedures as the cause of abnormal reaction of the patient, or of later complication, without mention of misadventure at the time of the procedure
CPT/HCPCS: 97597

== ENCOUNTER 2020-03-18 08:20 | Day surgery (SDC) | payer MEDICAID ==
[2020-03-18] MEDS ORDERED: LIDOcaine 2% 5ml jelly ONE (08:43)
== END 2020-03-18 09:33 | disposition home or self-care (01) ==
LOC: WOUND CARE 08:20
PROVIDERS: ATTEND Nurse Practitioner
DX: T81.89XD Other complications of procedures, not elsewhere classified, subsequent encounter (principal); L98.492 Non-pressure chronic ulcer of skin of other sites with fat layer exposed; L76.34 Postprocedural seroma of skin and subcutaneous tissue following other procedure; I10 Essential (primary) hypertension; G62.9 Polyneuropathy, unspecified; E66.9 Obesity, unspecified; J45.909 Unspecified asthma, uncomplicated; M19.90 Unspecified osteoarthritis, unspecified site; F32.9 Major depressive disorder, single episode, unspecified; Z68.34 Body mass index [BMI] 34.0-34.9, adult; Z79.899 Other long term (current) drug therapy; Z79.82 Long term (current) use of aspirin; Z98.890 Other specified postprocedural states; Z90.49 Acquired absence of other specified parts of digestive tract; Y83.8 Other surgical procedures as the cause of abnormal reaction of the patient, or of later complication, without mention of misadventure at the time of the procedure
CPT/HCPCS: 97597

== ENCOUNTER 2020-04-01 08:10 | Day surgery (SDC) | payer MEDICAID ==
[2020-04-01] MEDS ORDERED: LIDOcaine 2% 5ml jelly ONE (08:42)
== END 2020-04-01 09:17 | disposition home or self-care (01) ==
LOC: WOUND CARE 08:10
PROVIDERS: ATTEND Nurse Practitioner
DX: T81.89XD Other complications of procedures, not elsewhere classified, subsequent encounter (principal); L98.492 Non-pressure chronic ulcer of skin of other sites with fat layer exposed; L76.34 Postprocedural seroma of skin and subcutaneous tissue following other procedure; G90.09 Other idiopathic peripheral autonomic neuropathy; I10 Essential (primary) hypertension; E66.9 Obesity, unspecified; J45.909 Unspecified asthma, uncomplicated; M19.90 Unspecified osteoarthritis, unspecified site; G47.00 Insomnia, unspecified; F32.9 Major depressive disorder, single episode, unspecified; Z68.34 Body mass index [BMI] 34.0-34.9, adult; Z79.899 Other long term (current) drug therapy; Z79.82 Long term (current) use of aspirin; Z98.890 Other specified postprocedural states; Z90.49 Acquired absence of other specified parts of digestive tract; Z86.69 Personal history of other diseases of the nervous system and sense organs; Y83.8 Other surgical procedures as the cause of abnormal reaction of the patient, or of later complication, without mention of misadventure at the time of the procedure
CPT/HCPCS: 97597

== ENCOUNTER 2020-04-08 08:30 | Day surgery (SDC) | payer MEDICAID ==
[2020-04-08] MEDS ORDERED: LIDOcaine 2% 5ml jelly ONE (08:56)
== END 2020-04-08 09:35 | disposition home or self-care (01) ==
LOC: WOUND CARE 08:30
PROVIDERS: ATTEND Nurse Practitioner
DX: T81.89XD Other complications of procedures, not elsewhere classified, subsequent encounter (principal); L98.492 Non-pressure chronic ulcer of skin of other sites with fat layer exposed; L76.34 Postprocedural seroma of skin and subcutaneous tissue following other procedure; G90.09 Other idiopathic peripheral autonomic neuropathy; I10 Essential (primary) hypertension; E66.9 Obesity, unspecified; J45.909 Unspecified asthma, uncomplicated; M19.90 Unspecified osteoarthritis, unspecified site; G47.00 Insomnia, unspecified; F32.9 Major depressive disorder, single episode, unspecified; Z68.34 Body mass index [BMI] 34.0-34.9, adult; Z79.899 Other long term (current) drug therapy; Z79.82 Long term (current) use of aspirin; Z98.890 Other specified postprocedural states; Z90.49 Acquired absence of other specified parts of digestive tract; Z86.69 Personal history of other diseases of the nervous system and sense organs; Y83.8 Other surgical procedures as the cause of abnormal reaction of the patient, or of later complication, without mention of misadventure at the time of the procedure
CPT/HCPCS: 97597

== ENCOUNTER 2020-04-14 08:40 | Day surgery (SDC) | payer MEDICAID ==
[2020-04-14] MEDS ORDERED: LIDOcaine 2% 5ml jelly ONE (09:16)
[2020-04-14 09:54] LABS: BASOPHILS % (AUTO) 0.3 % (0-1); EOSINOPHILS # (AUTO) 0.1 X10'3 (0-0.9); EOSINOPHILS % (AUTO) 2.1 % (0-6); LYMPHOCYTES # (AUTO) 1.2 X10'3 (1.1-4.8); LYMPHOCYTES % (AUTO) 18.8 % (21-51); MEAN CORPUSCULAR HEMOGLOBIN 26.4 PG (27.0-31.0); MEAN CORPUSCULAR HGB CONC 33.2 g/dL (33.0-36.5); MEAN CORPUSCULAR VOLUME 79.5 FL (78-98); MEAN PLATELET VOLUME 8.8 FL (7.4-10.4); MONOCYTES # (AUTO) 0.5 X10'3 (0-0.9); MONOCYTES % (AUTO) 8.2 % (2-12); NEUTROPHILS # (AUTO) 4.6 X10'3 (1.8-7.7); NEUTROPHILS % (AUTO) 70.6 % (42-75); PRE OP HEMATOCRIT 34.1 % (42.0-52.0); PRE OP HEMOGLOBIN 11.3 g/dL (14.0-17.9); PRE OP PLATELET COUNT 182 X10'3 (140-440); RED BLOOD COUNT 4.29 X10'6 (4.70-6.10)
[2020-04-14 10:08] LABS: ALBUMIN 3.4 G/DL (3.4-5.0); ALBUMIN/GLOBULIN RATIO 0.9 (1.1-1.5); ALKALINE PHOSPHATASE 77 IU/L (46-116); BLOOD UREA NITROGEN 11 MG/DL (7-18); BUN/CREATININE RATIO 11.1 (5.4-32.0); CALCIUM 8.5 MG/DL (8.5-10.1); CHLORIDE 108 MMOL/L (99-107); CREATININE 0.99 MG/DL (0.60-1.10); PRE OP ALT 28 U/L (30-65); PRE OP ANION GAP 9 (8-16); PRE OP AST 18 U/L (10-37); PRE OP BILIRUB, TOTAL 0.2 MG/DL (0.0-1.0); PRE OP GLUCOSE 104 MG/DL (70-104); PRE OP POTASSIUM 3.7 MMOL/L (3.4-5.1); PRE OP SODIUM 142 MMOL/L (135-145); TOTAL CARBON DIOXIDE 25.3 MMOL/L (24-32); TOTAL PROTEIN 7.3 G/DL (6.4-8.2); eGFR 82 ML/MIN
== END 2020-04-14 10:07 | disposition home or self-care (01) ==
LOC: WOUND CARE 08:40
PROVIDERS: ATTEND Nurse Practitioner
DX: T81.89XD Other complications of procedures, not elsewhere classified, subsequent encounter (principal); L98.492 Non-pressure chronic ulcer of skin of other sites with fat layer exposed; L76.34 Postprocedural seroma of skin and subcutaneous tissue following other procedure; G90.09 Other idiopathic peripheral autonomic neuropathy; I10 Essential (primary) hypertension; E66.9 Obesity, unspecified; J45.909 Unspecified asthma, uncomplicated; M19.90 Unspecified osteoarthritis, unspecified site; G47.00 Insomnia, unspecified; F32.9 Major depressive disorder, single episode, unspecified; Z68.34 Body mass index [BMI] 34.0-34.9, adult; Z79.899 Other long term (current) drug therapy; Z79.82 Long term (current) use of aspirin; Z98.890 Other specified postprocedural states; Z90.49 Acquired absence of other specified parts of digestive tract; Z86.69 Personal history of other diseases of the nervous system and sense organs; Y83.8 Other surgical procedures as the cause of abnormal reaction of the patient, or of later complication, without mention of misadventure at the time of the procedure
CPT/HCPCS: 36415; 80053; 85025; 93005; 97597; C9803; U0003

== ENCOUNTER 2020-04-28 08:30 | Outpatient (CLI) | payer MEDICAID ==
[~2020-04-28] VITALS: Ht 182.9 cm; Wt 113.4 kg
[~2020-04-28 08:30] MED LIST changes: +ATOR10TA70 PO; +GABA-530 PO; +HYDR12.55 PO; +LISI40TA4 PO; +ceFAZolin 2gm in dextrose, iso 50 ML IV ONE; +famotidine 20mg tablet PO ONE; +ringers solution, lacted 1,000 ML IV SCH
== END 2020-04-28 23:59 | disposition home or self-care (01) ==
LOC: EDSTATUS 08:30 → PRE-OP 08:30
PROVIDERS: ATTEND Surgery
DX: T81.40XA Infection following a procedure, unspecified, initial encounter (principal); Z53.21 Procedure and treatment not carried out due to patient leaving prior to being seen by health care provider; L76.34 Postprocedural seroma of skin and subcutaneous tissue following other procedure; L98.492 Non-pressure chronic ulcer of skin of other sites with fat layer exposed; G90.09 Other idiopathic peripheral autonomic neuropathy
CPT/HCPCS: J7120

== ENCOUNTER 2020-05-12 05:52 | Day surgery (SDC) | payer MEDICAID ==
[2020-05-06 15:22] LABS: BASOPHILS % (AUTO) 0.2 % (0-1); EOSINOPHILS # (AUTO) 0.1 X10'3 (0-0.9); EOSINOPHILS % (AUTO) 1.5 % (0-6); LYMPHOCYTES # (AUTO) 1.2 X10'3 (1.1-4.8); LYMPHOCYTES % (AUTO) 17.7 % (21-51); MEAN CORPUSCULAR HEMOGLOBIN 25.8 PG (27.0-31.0); MEAN CORPUSCULAR HGB CONC 32.7 g/dL (33.0-36.5); MEAN PLATELET VOLUME 9.2 FL (7.4-10.4); MONOCYTES # (AUTO) 0.6 X10'3 (0-0.9); MONOCYTES % (AUTO) 8.2 % (2-12); NEUTROPHILS # (AUTO) 5.1 X10'3 (1.8-7.7); NEUTROPHILS % (AUTO) 72.4 % (42-75); PRE OP HEMATOCRIT 35.9 % (42.0-52.0); PRE OP HEMOGLOBIN 11.7 g/dL (14.0-17.9); PRE OP PLATELET COUNT 193 X10'3 (140-440); RED BLOOD COUNT 4.54 X10'6 (4.70-6.10); RED CELL DISTRIBUTION WIDTH 14.3 % (11.5-14.5)
[2020-05-06 15:44] LABS: ALBUMIN 3.8 G/DL (3.4-5.0); ALBUMIN/GLOBULIN RATIO 0.9 (1.1-1.5); ALKALINE PHOSPHATASE 91 IU/L (46-116); BLOOD UREA NITROGEN 14 MG/DL (7-18); BUN/CREATININE RATIO 14.3 (5.4-32.0); CHLORIDE 104 MMOL/L (99-107); CREATININE 0.98 MG/DL (0.60-1.10); PRE OP ALT 39 U/L (30-65); PRE OP ANION GAP 8 (8-16); PRE OP AST 24 U/L (10-37); PRE OP BILIRUB, TOTAL 0.5 MG/DL (0.0-1.0); PRE OP GLUCOSE 119 MG/DL (70-104); PRE OP POTASSIUM 3.4 MMOL/L (3.4-5.1); PRE OP SODIUM 141 MMOL/L (135-145); TOTAL CARBON DIOXIDE 28.7 MMOL/L (24-32); TOTAL PROTEIN 8.2 G/DL (6.4-8.2); eGFR 83 ML/MIN
[2020-05-12] VITALS (19 sets, daily range): BP systolic 130–154; BP diastolic 84–100
[~2020-05-12] VITALS: Ht 182.9 cm; Wt 117.1 kg
[~2020-05-12 05:52] MED LIST changes: -ASPI-1265 PO; -ceFAZolin 2gm in dextrose, iso 50 ML IV ONE; +clindamycin-Cleocin 900mg/D5W 50 ML IV ONE
[2020-05-12] MEDS ORDERED: phenylephrine 10mg/ml inj. ONE (12:26)
[2020-05-12] MEDS ORDERED: sevoflurane 250ml liquid IH ONE (12:26)
[2020-05-12] MEDS ORDERED: fentaNYL/PF 50MCG/1 ML 2ML syringe ONE ×2 (12:32→12:44)
[2020-05-12] MEDS ORDERED: midazolam 2 mg/2 ml injection ONE (12:32)
[2020-05-12] MEDS ORDERED: propofol inj 20 ML IV ONE (12:43)
[2020-05-12] MEDS ORDERED: LIDOcaine 2% (20mg/ml) 5ml vial ONE (12:43)
[2020-05-12] MEDS ORDERED: rocuronium 10mg/ml inj IV ONE (12:43)
[2020-05-12] MEDS ORDERED: ePHEDrine 50MG/ML INJ. ONE (12:58)
[2020-05-12] MEDS ORDERED: ondansetron/PF 4mg/2ml inj ONE ×2 (12:58→13:07)
[2020-05-12] MEDS ORDERED: neostigmine methylsulfate 1 MG/ML 10ml vial ONE ×2 (12:58→13:07)
[2020-05-12] MEDS ORDERED: glycopyrrolate 0.2mg/ml inj ONE ×2 (12:58→13:07)
[2020-05-12] MEDS ORDERED: dexamethasone sod phosphate 4mg/ml inj. ONE (12:58)
[2020-05-12] MEDS ORDERED: sugammadex 200mg/2ml injection IV ONE (13:23)
--- NOTE | 2020-05-12 13:23 | NUR ---
RECEIVED FROM OR VIA [facility] ACCOMPANIED BY ANESTHESIOLOGIST DR CHANEY, REPORT GIVEN. PT DROWSY BUT AWAKENS WITH NO COMPLAINT OF PAIN AT THIS TIME. PACKING AND 4X4 DRESSING TO COCCYX CDI. 20 GAUGE PIV R HAND PATENT AND RUNNING LR AT 100 ML/HR. VSS, LE, SKIN PINK AND WARM, GOOD CAP REFILL, ABD SOFT, RESTING COMFORTABLY.
[2020-05-12] MEDS ORDERED: ringers solution, lacted 1,000 ML IV SCH (13:32)
[2020-05-12] MEDS ORDERED: morphine 2 MG/ML inj. syringe IV PRN (13:35)
[2020-05-12] MEDS ORDERED: morphine 4 MG/ML inj SYRINge IV PRN (13:35)
[2020-05-12] MEDS ORDERED: meperidine/PF 25mg/ml syringe IV PRN ×3 (13:35)
[2020-05-12] MEDS ORDERED: proCHLORperazine 10 MG/2 ml inj IV PRN (13:35)
[2020-05-12] MEDS ORDERED: ondansetron/PF 4mg/2ml inj IV PRN (13:35)
--- NOTE | 2020-05-12 16:03 | NUR ---
PT AWAKE AND ALERT WITH NO COMPLAINT OF PAIN AT THIS TIME. PACKING AND 4X4 DRESSING TO COCCYX CDI. 20 GAUGE PIV R HAND DC/D CATH TIP INTACT. VSS, LE, SKIN PINK AND WARM, GOOD CAP REFILL, ABD SOFT. TOLERATING FLUIDS, ABLE TO DRESS SELF AND AMBULATE. DISCHARGE INSTRUCTIONS GIVEN AND PT VERBALIZED UNDERSTANDING. TRANSPORTED VIA WHEELCHAIR TO [employer] TO HOME.
== END 2020-05-12 16:03 | disposition home or self-care (01) ==
LOC: PAS 05:52
PROVIDERS: ATTEND Surgery
DX: L05.01 Pilonidal cyst with abscess (principal); I10 Essential (primary) hypertension; G90.09 Other idiopathic peripheral autonomic neuropathy; F32.9 Major depressive disorder, single episode, unspecified; Z98.890 Other specified postprocedural states; Z88.2 Allergy status to sulfonamides; Z88.0 Allergy status to penicillin; Z79.899 Other long term (current) drug therapy; Z20.828 Contact with and (suspected) exposure to other viral communicable diseases; Z83.3 Family history of diabetes mellitus; Z82.49 Family history of ischemic heart disease and other diseases of the circulatory system; Z82.3 Family history of stroke
CPT/HCPCS: 11770; 36415; 80053; 82948; 85025; 87635; A6266; C9399; J1100; J2001; J2250; J2370; J2405; J2704; J2710; J3010; J7120; A4618; A6449; A7000; J3490

== ENCOUNTER 2020-05-14 12:10 | Day surgery (SDC) | payer MEDICAID ==
[~2020-05-14 12:10] MED LIST changes: -clindamycin-Cleocin 900mg/D5W 50 ML IV ONE; -famotidine 20mg tablet PO ONE; -ringers solution, lacted 1,000 ML IV SCH
[2020-05-14] MEDS ORDERED: LIDOcaine 2% 5ml jelly ONE (13:12)
== END 2020-05-14 14:40 | disposition home or self-care (01) ==
LOC: WOUND CARE 12:10
PROVIDERS: ATTEND Nurse Practitioner
DX: T81.89XD Other complications of procedures, not elsewhere classified, subsequent encounter (principal); L98.492 Non-pressure chronic ulcer of skin of other sites with fat layer exposed; L76.34 Postprocedural seroma of skin and subcutaneous tissue following other procedure; G90.09 Other idiopathic peripheral autonomic neuropathy; E66.9 Obesity, unspecified; I10 Essential (primary) hypertension; J45.909 Unspecified asthma, uncomplicated; M19.90 Unspecified osteoarthritis, unspecified site; G47.00 Insomnia, unspecified; F32.9 Major depressive disorder, single episode, unspecified; Z68.34 Body mass index [BMI] 34.0-34.9, adult; Z79.899 Other long term (current) drug therapy; Z79.82 Long term (current) use of aspirin; Z98.890 Other specified postprocedural states; Z90.49 Acquired absence of other specified parts of digestive tract; Z86.69 Personal history of other diseases of the nervous system and sense organs; Y83.8 Other surgical procedures as the cause of abnormal reaction of the patient, or of later complication, without mention of misadventure at the time of the procedure
CPT/HCPCS: 97597

== ENCOUNTER 2020-05-19 09:20 | Day surgery (SDC) | payer MEDICAID ==
[2020-05-19] MEDS ORDERED: LIDOcaine 2% 5ml jelly ONE (10:41)
== END 2020-05-19 11:32 | disposition home or self-care (01) ==
LOC: WOUND CARE 09:20
PROVIDERS: ATTEND Nurse Practitioner
DX: T81.89XD Other complications of procedures, not elsewhere classified, subsequent encounter (principal); L98.492 Non-pressure chronic ulcer of skin of other sites with fat layer exposed; L76.34 Postprocedural seroma of skin and subcutaneous tissue following other procedure; G90.09 Other idiopathic peripheral autonomic neuropathy; I10 Essential (primary) hypertension; J45.909 Unspecified asthma, uncomplicated; M19.90 Unspecified osteoarthritis, unspecified site; G47.00 Insomnia, unspecified; E66.9 Obesity, unspecified; F32.9 Major depressive disorder, single episode, unspecified; Z68.34 Body mass index [BMI] 34.0-34.9, adult; Z90.49 Acquired absence of other specified parts of digestive tract; Z79.82 Long term (current) use of aspirin; Z79.899 Other long term (current) drug therapy; Z98.890 Other specified postprocedural states; Z86.69 Personal history of other diseases of the nervous system and sense organs; Y83.8 Other surgical procedures as the cause of abnormal reaction of the patient, or of later complication, without mention of misadventure at the time of the procedure
CPT/HCPCS: 97597

== ENCOUNTER → 2020-05-27 | Day surgery (SDC) | payer MEDICAID ==
[~2020-05-27] MED LIST changes: +LIDOcaine 2% 5ml jelly ONE
== END | disposition home or self-care (01) ==
LOC: WOUND CARE 08:34
PROVIDERS: ATTEND Nurse Practitioner
DX: T81.89XD Other complications of procedures, not elsewhere classified, subsequent encounter (principal); L98.492 Non-pressure chronic ulcer of skin of other sites with fat layer exposed; L76.34 Postprocedural seroma of skin and subcutaneous tissue following other procedure; I10 Essential (primary) hypertension; G47.00 Insomnia, unspecified; F32.9 Major depressive disorder, single episode, unspecified; E66.9 Obesity, unspecified; G90.09 Other idiopathic peripheral autonomic neuropathy; J45.909 Unspecified asthma, uncomplicated; M19.90 Unspecified osteoarthritis, unspecified site; Z68.34 Body mass index [BMI] 34.0-34.9, adult; Z98.890 Other specified postprocedural states; Z90.49 Acquired absence of other specified parts of digestive tract; Z86.69 Personal history of other diseases of the nervous system and sense organs; Z79.82 Long term (current) use of aspirin; Z79.899 Other long term (current) drug therapy; Y83.8 Other surgical procedures as the cause of abnormal reaction of the patient, or of later complication, without mention of misadventure at the time of the procedure
CPT/HCPCS: 97597

== ENCOUNTER 2020-06-03 09:20 | Day surgery (SDC) | payer MEDICAID ==
[~2020-06-03 09:20] MED LIST changes: -LIDOcaine 2% 5ml jelly ONE
[2020-06-03] MEDS ORDERED: LIDOcaine 2% 5ml jelly ONE (09:30)
== END 2020-06-03 11:00 | disposition home or self-care (01) ==
LOC: WOUND CARE 09:20
PROVIDERS: ATTEND Nurse Practitioner
DX: T81.89XD Other complications of procedures, not elsewhere classified, subsequent encounter (principal); L98.492 Non-pressure chronic ulcer of skin of other sites with fat layer exposed; L76.34 Postprocedural seroma of skin and subcutaneous tissue following other procedure; G90.09 Other idiopathic peripheral autonomic neuropathy; I10 Essential (primary) hypertension; E66.9 Obesity, unspecified; J45.909 Unspecified asthma, uncomplicated; M19.90 Unspecified osteoarthritis, unspecified site; G47.00 Insomnia, unspecified; F32.9 Major depressive disorder, single episode, unspecified; Z68.34 Body mass index [BMI] 34.0-34.9, adult; Z79.899 Other long term (current) drug therapy; Z79.82 Long term (current) use of aspirin; Z98.890 Other specified postprocedural states; Z90.49 Acquired absence of other specified parts of digestive tract; Z86.69 Personal history of other diseases of the nervous system and sense organs; Y83.8 Other surgical procedures as the cause of abnormal reaction of the patient, or of later complication, without mention of misadventure at the time of the procedure
CPT/HCPCS: 97597

== ENCOUNTER 2020-06-11 09:14 | Outpatient (CLI) | payer MEDICAID | END 2020-06-11 10:45 | disposition home or self-care (01) | LOC: WOUND CARE 09:14 → EDSTATUS 09:20 → WOUND CARE 10:45 | PROVIDERS: ATTEND Nurse Practitioner | DX: T81.89XD Other complications of procedures, not elsewhere classified, subsequent encounter (principal); L98.492 Non-pressure chronic ulcer of skin of other sites with fat layer exposed; L76.34 Postprocedural seroma of skin and subcutaneous tissue following other procedure; G90.09 Other idiopathic peripheral autonomic neuropathy; I10 Essential (primary) hypertension; E66.9 Obesity, unspecified; J45.909 Unspecified asthma, uncomplicated; M19.90 Unspecified osteoarthritis, unspecified site; G47.00 Insomnia, unspecified; F32.9 Major depressive disorder, single episode, unspecified; Z68.34 Body mass index [BMI] 34.0-34.9, adult; Z79.899 Other long term (current) drug therapy; Z79.82 Long term (current) use of aspirin; Z98.890 Other specified postprocedural states; Z90.49 Acquired absence of other specified parts of digestive tract; Z86.69 Personal history of other diseases of the nervous system and sense organs; Y83.8 Other surgical procedures as the cause of abnormal reaction of the patient, or of later complication, without mention of misadventure at the time of the procedure | CPT/HCPCS: 97605 ==

== ENCOUNTER 2020-06-18 09:00 | Day surgery (SDC) | payer MEDICAID ==
[2020-06-18] MEDS ORDERED: LIDOcaine 2% 5ml jelly ONE (09:31)
== END 2020-06-18 10:38 | disposition home or self-care (01) ==
LOC: WOUND CARE 09:00
PROVIDERS: ATTEND Nurse Practitioner
DX: T81.89XD Other complications of procedures, not elsewhere classified, subsequent encounter (principal); L98.492 Non-pressure chronic ulcer of skin of other sites with fat layer exposed; L76.34 Postprocedural seroma of skin and subcutaneous tissue following other procedure; G90.09 Other idiopathic peripheral autonomic neuropathy; I10 Essential (primary) hypertension; E66.9 Obesity, unspecified; J45.909 Unspecified asthma, uncomplicated; M19.90 Unspecified osteoarthritis, unspecified site; G47.00 Insomnia, unspecified; F32.9 Major depressive disorder, single episode, unspecified; Z68.34 Body mass index [BMI] 34.0-34.9, adult; Z79.899 Other long term (current) drug therapy; Z79.82 Long term (current) use of aspirin; Z98.890 Other specified postprocedural states; Z90.49 Acquired absence of other specified parts of digestive tract; Z86.69 Personal history of other diseases of the nervous system and sense organs; Y83.8 Other surgical procedures as the cause of abnormal reaction of the patient, or of later complication, without mention of misadventure at the time of the procedure
CPT/HCPCS: 97597

== ENCOUNTER 2020-06-25 09:15 | Day surgery (SDC) | payer MEDICAID ==
[2020-06-25] MEDS ORDERED: LIDOcaine 2% 5ml jelly ONE (09:42)
== END 2020-06-25 09:57 | disposition home or self-care (01) ==
LOC: WOUND CARE 09:15
PROVIDERS: ATTEND Nurse Practitioner
DX: T81.89XD Other complications of procedures, not elsewhere classified, subsequent encounter (principal); L98.492 Non-pressure chronic ulcer of skin of other sites with fat layer exposed; L76.34 Postprocedural seroma of skin and subcutaneous tissue following other procedure; G90.09 Other idiopathic peripheral autonomic neuropathy; I10 Essential (primary) hypertension; E66.9 Obesity, unspecified; J45.909 Unspecified asthma, uncomplicated; M19.90 Unspecified osteoarthritis, unspecified site; G47.00 Insomnia, unspecified; F32.9 Major depressive disorder, single episode, unspecified; Z68.34 Body mass index [BMI] 34.0-34.9, adult; Z79.899 Other long term (current) drug therapy; Z79.82 Long term (current) use of aspirin; Z98.890 Other specified postprocedural states; Z90.49 Acquired absence of other specified parts of digestive tract; Z86.69 Personal history of other diseases of the nervous system and sense organs; Y83.8 Other surgical procedures as the cause of abnormal reaction of the patient, or of later complication, without mention of misadventure at the time of the procedure
CPT/HCPCS: 97597

== ENCOUNTER 2020-07-02 09:16 | Outpatient (CLI) | payer MEDICAID ==
[2020-07-02] MEDS ORDERED: LIDOcaine 2% 5ml jelly ONE (09:38)
== END 2020-07-02 23:59 | disposition home or self-care (01) ==
LOC: WOUND CARE 09:16 → EDSTATUS 09:20 → WOUND CARE 10:25
PROVIDERS: ATTEND Nurse Practitioner
DX: T81.89XD Other complications of procedures, not elsewhere classified, subsequent encounter (principal); L98.492 Non-pressure chronic ulcer of skin of other sites with fat layer exposed; L76.34 Postprocedural seroma of skin and subcutaneous tissue following other procedure; G90.09 Other idiopathic peripheral autonomic neuropathy; I10 Essential (primary) hypertension; E66.9 Obesity, unspecified; J45.909 Unspecified asthma, uncomplicated; M19.90 Unspecified osteoarthritis, unspecified site; G47.00 Insomnia, unspecified; F32.9 Major depressive disorder, single episode, unspecified; Z68.34 Body mass index [BMI] 34.0-34.9, adult; Z79.899 Other long term (current) drug therapy; Z79.82 Long term (current) use of aspirin; Z98.890 Other specified postprocedural states; Z90.49 Acquired absence of other specified parts of digestive tract; Z86.69 Personal history of other diseases of the nervous system and sense organs; Y83.8 Other surgical procedures as the cause of abnormal reaction of the patient, or of later complication, without mention of misadventure at the time of the procedure
CPT/HCPCS: 97597

== ENCOUNTER 2022-05-06 17:33 | Inpatient (IN) | payer MEDICAID ==
[~2022-05-06] VITALS: Ht 182.9 cm; Wt 116.0 kg
[2022-05-06] VITALS (7 sets, daily range): BP systolic 147–164; BP diastolic 83–94
[~2022-05-06 17:33] MED LIST changes: +LISI40TA13 PO; -LISI40TA4 PO
[2022-05-06 18:17] LABS: ALANINE AMINOTRANSFERASE 28 U/L (12-78); ALBUMIN 3.6 G/DL (3.4-5.0); ALBUMIN/GLOBULIN RATIO 0.8 (1.1-1.5); ALKALINE PHOSPHATASE 89 IU/L (46-116); ANION GAP 13 (8-16); ASPARTATE AMINO TRANSFERASE 23 U/L (10-37); BILIRUBIN,TOTAL 0.4 MG/DL (0.1-1.0); BLOOD UREA NITROGEN 10 MG/DL (7-18); BUN/CREATININE RATIO 9.7 (5.4-32.0); CALCIUM 8.4 MG/DL (8.5-10.1); CHLORIDE 107 MMOL/L (99-107); CREATININE 1.03 MG/DL (0.60-1.10); GLUCOSE 120 MG/DL (70-104); POTASSIUM 3.4 MMOL/L (3.5-5.1); SODIUM 143 MMOL/L (135-145); TOTAL CARBON DIOXIDE 23.3 MMOL/L (24-32); TOTAL PROTEIN 7.9 G/DL (6.4-8.2); eGFR 77 ML/MIN
[2022-05-06 18:23] LABS: BASOPHILS % (AUTO) 0.3 % (0-1); EOSINOPHILS % (AUTO) 0.7 % (0-6); HEMATOCRIT 22.5 % (42.0-52.0); LYMPHOCYTES # (AUTO) 0.6 X10'3 (1.1-4.8); LYMPHOCYTES % (AUTO) 10.2 % (21-51); MEAN CORPUSCULAR HEMOGLOBIN 16.4 PG (27.0-31.0); MEAN CORPUSCULAR VOLUME 54.7 FL (78-98); MEAN PLATELET VOLUME 8.3 FL (7.4-10.4); MONOCYTES # (AUTO) 0.5 X10'3 (0-0.9); MONOCYTES % (AUTO) 7.7 % (2-12); NEUTROPHILS % (AUTO) 81.1 % (42-75); PLATELET COUNT 291 X10'3 (140-440); RED BLOOD COUNT 4.11 X10'6 (4.70-6.10); RED CELL DISTRIBUTION WIDTH 20.6 % (11.5-14.5); WHITE BLOOD COUNT 6.1 X10'3 (4.5-11.0)
[2022-05-06 18:30] LABS: HEMOGLOBIN 6.7 g/dl (14.0-17.9)
[2022-05-06 18:54] LABS: ANISOCYTOSIS 3+; HYPOCHROMASIA 1+; MICROCYTOSIS 3+; PLATELET ESTIMATE NORMAL
[2022-05-06] MEDS ORDERED: PEG 3350/Na sulf,bicarb,Cl/KCl oral sol 4 liter bottle PO ONE (21:00)
[2022-05-06 21:50] LABS: APTT 25 SECONDS (22-32)
[2022-05-06] MEDS ORDERED: magnesium Cl slow-release 64mg tablet PO PRN (22:05)
[2022-05-06] MEDS ORDERED: magnesium 4gm in 100ml NS 100 ML IV PRN (22:05)
[2022-05-06] MEDS ORDERED: ondansetron/PF 4mg/2ml inj IV PRN (22:05)
[2022-05-06] MEDS ORDERED: POTASSIUM BICARB 20meq eff tab 20 MEQ TABLET.EFF PO PRN (22:05)
[2022-05-06] MEDS ORDERED: morphine 2 MG/ML inj. syringe IV PRN ×2 (22:05)
[2022-05-06] MEDS ORDERED: mag hydrox/Alum hydrox/simeth 30ml oral suspension PO PRN (22:05)
[2022-05-06] MEDS ORDERED: magnesium 2GM in 50ml NS 50 ML IV PRN (22:05)
[2022-05-06] MEDS ORDERED: magnesium hydroxide 30ml (MOM) UD suspension PO PRN (22:05)
[2022-05-06] MEDS ORDERED: potassium CL 10mEq/100ml bag 100 ML IV PRN (22:05)
[2022-05-06] MEDS ORDERED: acetaminophen 325mg tablet PO PRN (22:05)
[2022-05-06 22:20] LABS: POTASSIUM 3.6 MMOL/L (3.5-5.1)
[2022-05-06] MEDS ORDERED: LOSA50TA64 PO (22:45)
[2022-05-07] VITALS (12 sets, daily range): BP systolic 115–177; BP diastolic 56–104
--- NOTE | 2022-05-07 00:30 | NUR ---
Patient in room ORTHO 4024. I have received report from TRAVON Lopez and had the opportunity to ask questions and assume patient care.
--- NOTE | 2022-05-07 00:50 | NUR ---
pt arrived from ER, on [place]. Ambulated to the bed. Oriented to the room, call light in reach.
[2022-05-07] MEDS: POTASSIUM BICARB 20meq eff tab 20 MEQ TABLET.EFF PO PRN ×2 (01:22→05:25)
[2022-05-07] MEDS: pantoprazole 40MG/NS 100ML BAG 100 ML IV SCH ×2 (01:37→07:58)
[2022-05-07 05:39] LABS: OCCULT BLOOD STOOL NEGATIVE (Neg)
--- NOTE | 2022-05-07 06:27 | NUR ---
Patient in room ORTHO 4024. I have received report from INDIRA COOL and had the opportunity to ask questions and assume patient care.
--- NOTE | 2022-05-07 06:29 | NUR ---
Problems reprioritized. Patient report given, questions answered & plan of care reviewed with TRAVON Whatley.
[2022-05-07] MEDS: atorvastatin 10mg tablet PO SCH (07:58)
[2022-05-07] MEDS: losartan 50mg tablet PO SCH (07:59)
[2022-05-07] MEDS: K and/or MAG REPLACEMENT MC SCH ×2 (08:00→19:25)
[2022-05-07] MEDS ORDERED: docusate sod 100mg capsule PO SCH (08:00)
--- NOTE | 2022-05-07 08:00 | NUR ---
patiet continuing to drink goletyly , stool is brownish color liquidy. willl continue to monitor
[2022-05-07 08:24] LABS: BASOPHILS % (AUTO) 0.1 % (0-1); EOSINOPHILS % (AUTO) 0.1 % (0-6); LYMPHOCYTES # (AUTO) 0.9 X10'3 (1.1-4.8); LYMPHOCYTES % (AUTO) 6.4 % (21-51); MEAN PLATELET VOLUME 8.2 FL (7.4-10.4); MONOCYTES # (AUTO) 0.9 X10'3 (0-0.9); MONOCYTES % (AUTO) 6.9 % (2-12); NEUTROPHILS # (AUTO) 11.6 X10'3 (1.8-7.7); NEUTROPHILS % (AUTO) 86.5 % (42-75); PLATELET COUNT 391 X10'3 (140-440); WHITE BLOOD COUNT 13.4 X10'3 (4.5-11.0)
[2022-05-07 08:47] LABS: ALANINE AMINOTRANSFERASE 31 U/L (12-78); ALBUMIN/GLOBULIN RATIO 0.8 (1.1-1.5); ALKALINE PHOSPHATASE 94 IU/L (46-116); ANION GAP 20 (8-16); ASPARTATE AMINO TRANSFERASE 31 U/L (10-37); BILIRUBIN,TOTAL 0.9 MG/DL (0.1-1.0); BLOOD UREA NITROGEN 8 MG/DL (7-18); BUN/CREATININE RATIO 7.4 (5.4-32.0); CALCIUM 8.7 MG/DL (8.5-10.1); CHLORIDE 103 MMOL/L (99-107); CREATININE 1.08 MG/DL (0.60-1.10); GLUCOSE 112 MG/DL (70-104); MAGNESIUM 1.9 MG/DL (1.5-2.4); POTASSIUM 3.6 MMOL/L (3.5-5.1); SODIUM 145 MMOL/L (135-145); TOTAL CARBON DIOXIDE 21.8 MMOL/L (24-32); TOTAL PROTEIN 8.8 G/DL (6.4-8.2); eGFR 73 ML/MIN
[2022-05-07 08:52] LABS: HEMATOCRIT 27.1 % (42.0-52.0); HEMOGLOBIN 8.2 g/dl (14.0-17.9); MEAN CORPUSCULAR HEMOGLOBIN 17.7 PG (27.0-31.0); MEAN CORPUSCULAR HGB CONC 30.4 g/dL (33.0-36.5); MEAN CORPUSCULAR VOLUME 58.3 FL (78-98); RED BLOOD COUNT 4.65 X10'6 (4.70-6.10); RED CELL DISTRIBUTION WIDTH 21.4 % (11.5-14.5)
--- NOTE | 2022-05-07 10:30 | NUR ---
patient went to GI lab for colonoscopy. Report in chart. VSS. commenced on clear liquid diet .will continue to monitor
[2022-05-07] MEDS ORDERED: fentaNYL/PF 50MCG/1 ML 2ML syringe ONE (11:14)
[2022-05-07] MEDS ORDERED: MIDAZolam 1 MG/ML 5ML VIAL ONE (11:15)
[2022-05-07] MEDS ORDERED: LIDOcaine Viscous 15ml cup ONE (11:15)
[2022-05-07 11:19] LABS: PLATELET ESTIMATE NORMAL
[2022-05-07 11:20] LABS: ANISOCYTOSIS 3+; ELLIPTOCYTES 1+; HYPOCHROMASIA 3+; MICROCYTOSIS 3+; POLYCHROMASIA 2+; SCHISTOCYTES FEW; TARGET CELLS FEW; TEAR DROP CELLS 1+
--- NOTE | 2022-05-07 18:14 | NUR ---
Problems reprioritized. Patient report given, questions answered & plan of care reviewed with ganga COOL.
[2022-05-07] MEDS: pantoprazole 40mg Tablet.DR PO SCH (19:34)
[2022-05-08 05:51] LABS: BASOPHILS % (AUTO) 0.4 % (0-1); EOSINOPHILS % (AUTO) 0.4 % (0-6); LYMPHOCYTES # (AUTO) 0.9 X10'3 (1.1-4.8); LYMPHOCYTES % (AUTO) 9.9 % (21-51); MEAN PLATELET VOLUME 8.6 FL (7.4-10.4); MONOCYTES # (AUTO) 0.8 X10'3 (0-0.9); NEUTROPHILS % (AUTO) 80.3 % (42-75); PLATELET COUNT 306 X10'3 (140-440); RED CELL DISTRIBUTION WIDTH 21.9 % (11.5-14.5); WHITE BLOOD COUNT 8.8 X10'3 (4.5-11.0)
[2022-05-08 06:00] VITALS: BP 138/70
[2022-05-08 06:02] LABS: ALANINE AMINOTRANSFERASE 34 U/L (12-78); ALBUMIN 3.5 G/DL (3.4-5.0); ALBUMIN/GLOBULIN RATIO 0.8 (1.1-1.5); ALKALINE PHOSPHATASE 102 IU/L (46-116); ANION GAP 10 (8-16); ASPARTATE AMINO TRANSFERASE 62 U/L (10-37); BILIRUBIN,TOTAL 0.9 MG/DL (0.1-1.0); BLOOD UREA NITROGEN 7 MG/DL (7-18); BUN/CREATININE RATIO 7.1 (5.4-32.0); CALCIUM 8.6 MG/DL (8.5-10.1); CHLORIDE 105 MMOL/L (99-107); CREATININE 0.99 MG/DL (0.60-1.10); GLUCOSE 113 MG/DL (70-104); POTASSIUM 3.4 MMOL/L (3.5-5.1); SODIUM 140 MMOL/L (135-145); TOTAL PROTEIN 7.7 G/DL (6.4-8.2); eGFR 81 ML/MIN
--- NOTE | 2022-05-08 06:25 | NUR ---
Patient in room ORTHO 4024. I have received report from ganga Emerson and had the opportunity to ask questions and assume patient care.
[2022-05-08 06:36] LABS: HEMATOCRIT 24.6 % (42.0-52.0); HEMOGLOBIN 7.8 g/dl (14.0-17.9); MEAN CORPUSCULAR HEMOGLOBIN 17.6 PG (27.0-31.0); MEAN CORPUSCULAR HGB CONC 31.8 g/dL (33.0-36.5); MEAN CORPUSCULAR VOLUME 55.3 FL (78-98)
[2022-05-08 07:00] VITALS: BP 138/70
[2022-05-08] MEDS: pantoprazole 40mg Tablet.DR PO SCH (08:35)
[2022-05-08] MEDS: POTASSIUM BICARB 20meq eff tab 20 MEQ TABLET.EFF PO PRN ×2 (08:35→15:13)
[2022-05-08] MEDS: losartan 50mg tablet PO SCH (08:35)
[2022-05-08] MEDS: atorvastatin 10mg tablet PO SCH (08:35)
[2022-05-08 09:59] LABS: PLATELET ESTIMATE NORMAL
[2022-05-08 10:00] VITALS: BP 127/77
[2022-05-08 10:00] LABS: ANISOCYTOSIS 3+; MICROCYTOSIS 3+
[2022-05-08 10:01] LABS: HYPOCHROMASIA 2+
[2022-05-08 10:02] LABS: ELLIPTOCYTES 1+; POLYCHROMASIA 1+
[2022-05-08] MEDS ORDERED: PANT40TA54 PO (10:41)
[2022-05-08] MEDS ORDERED: FERR240T5 PO (10:41)
[2022-05-08 11:45] LABS: % IRON SATURATION 3 % (11-46); IRON 15 UG/DL (53-167); TOTAL IRON BINDING CAPACITY 470 UG/DL (259-388)
--- NOTE | 2022-05-08 15:52 | NUR ---
patient appeared stable no new signs of GI bleed. Seen by Dr Tim rosales for DC. ALl Dc instructions given to patient. Patient DC home via private car, in stable condition with friend . 1530hrs
== END 2022-05-08 15:20 | disposition home or self-care (01) | DRG 241 ==
LOC: ER 17:34 → ED HOLD 22:05 → ORTHO 4S 05-07 00:49
PROVIDERS: ADMIT Internal Medicine; ATTEND Internal Medicine
PROC: 30233N1 Transfusion of Nonautologous Red Blood Cells into Peripheral Vein, Percutaneous Approach (ICD-10-PCS; 2022-05-06)
PROC: 0DJD8ZZ Inspection of Lower Intestinal Tract, Via Natural or Artificial Opening Endoscopic (ICD-10-PCS; principal; 2022-05-07)
PROC: 0DB68ZX Excision of Stomach, Via Natural or Artificial Opening Endoscopic, Diagnostic (ICD-10-PCS; 2022-05-07)
PROC: 0DB68ZZ Excision of Stomach, Via Natural or Artificial Opening Endoscopic (ICD-10-PCS; 2022-05-07)
DX: K29.50 Unspecified chronic gastritis without bleeding (principal); K74.60 Unspecified cirrhosis of liver; D50.9 Iron deficiency anemia, unspecified; E78.5 Hyperlipidemia, unspecified; I10 Essential (primary) hypertension; K31.7 Polyp of stomach and duodenum; G62.9 Polyneuropathy, unspecified; D72.829 Elevated white blood cell count, unspecified; Z60.2 Problems related to living alone; R00.0 Tachycardia, unspecified; K57.30 Diverticulosis of large intestine without perforation or abscess without bleeding; K64.4 Residual hemorrhoidal skin tags; K64.8 Other hemorrhoids; Z83.3 Family history of diabetes mellitus; Z79.899 Other long term (current) drug therapy; Z88.0 Allergy status to penicillin; Z88.2 Allergy status to sulfonamides
CPT/HCPCS: 36415; 36430; 43239; 45378; 71045; 80053; 82272; 83540; 83550; 83735; 83880; 84132; 84484; 85008; 85025; 85610; 85730; 86885; 86900; 86901; 86920; 87081; 93005; 99152; 99153; 99285; A4620; C9113; G0378; J2250; J3010; J7030; J7040; P9016

== ENCOUNTER 2022-12-17 19:23 | Emergency (ER) | payer MEDICAID ==
[~2022-12-17] VITALS: Ht 175.3 cm; Wt 118.2 kg
[~2022-12-17 19:23] MED LIST changes: +FERR240T5 PO; -GABA-530 PO; -HYDR12.55 PO; -LISI40TA13 PO; +LOSA50TA64 PO; +PANT40TA54 PO
[2022-12-17] MEDS ORDERED: acetaminophen 325mg tablet PO ONE (20:00)
[2022-12-17 20:03] VITALS: BP 153/84
== END 2022-12-17 22:01 | disposition home or self-care (01) ==
LOC: ER 19:23
DX: S82.144A Nondisplaced bicondylar fracture of right tibia, initial encounter for closed fracture (principal); G62.9 Polyneuropathy, unspecified; I10 Essential (primary) hypertension; Z88.0 Allergy status to penicillin; Z88.2 Allergy status to sulfonamides; Z79.899 Other long term (current) drug therapy; W23.1XXA Caught, crushed, jammed, or pinched between stationary objects, initial encounter; Y93.89 Activity, other specified; Y92.89 Other specified places as the place of occurrence of the external cause; Y99.8 Other external cause status
CPT/HCPCS: 29505; 73564; 99284

== ENCOUNTER 2023-12-25 18:59 | Emergency (ER) | payer MEDICAID ==
[~2023-12-25] VITALS: Ht 177.8 cm; Wt 125.0 kg
[~2023-12-25 18:59] MED LIST changes: +APIX5TAB3 PO; +ASCO-134 PO; -FERR240T5 PO; +HYDR12.55 PO; +LOSA100T58 PO; -LOSA50TA64 PO; -PANT40TA54 PO
[2023-12-25 20:10] VITALS: BP 181/103; PULSE 105; RESP 20; TEMP 98; O2SAT 98
[2023-12-25] MEDS ORDERED: LOSA100T58 PO (21:22)
== END 2023-12-25 21:33 | disposition home or self-care (01) ==
LOC: ER 19:00
DX: I10 Essential (primary) hypertension (principal); E78.00 Pure hypercholesterolemia, unspecified; Z88.0 Allergy status to penicillin; Z88.2 Allergy status to sulfonamides; Z79.899 Other long term (current) drug therapy
CPT/HCPCS: 99283

== ENCOUNTER 2025-08-29 13:30 | Inpatient (IN) | payer MEDICAID ==
[~2025-08-29] VITALS: Ht 182.9 cm; Wt 122.7 kg
--- NOTE | 2025-08-29 14:29 | Physician Documentation ---
History of Present Illness ~ Chief Complaint: Wound Stated Complaint: LEG WOUNDS Time Seen by MD: 15:03 OK to notify your PCP?: Yes Primary Medical Doctor: Bernabe Starr Source: patient Mode of Arrival: POV Exam Limitations: no limitations HPI 50-year-old male presents to the ED from home with concerns over leg wounds which started 2 weeks ago. He has chronic edema in his bilateral lower extremities which he reports that his PCP wanted to send him to a police lieutenant patrol but he ended up not seen one. Currently using mupirocin topical antibiotics twice daily on his wounds. Bilateral lower extremity wounds are in various stages of healing with surrounding erythema and serous drainage along with blistering on the lateral aspect of the left lower extremity. Denies any chest pain, fever, nausea, vomiting or diarrhea. He reports that he has a history of anemia and is supposed to be taking iron supplementation but has not taken in the past 5-6 months. Reports that he has had to have a blood transfusion in the past due to iron deficiency anemia. Denies any alcohol use. He does have some shortness of breath if he is walking or standing for too long. He uses a walker for short distances at home but mainly has a wheelchair due to bilateral neuropathy in his legs and feet. Day of Onset of Wound: Aug 29, 2025 Tetanus within 5 years?: No Medication Reconciliation Allergies: Coded Allergies: Penicillins (Verified Allergy, Unknown, HIVES, 08/29/25) Sulfa (Sulfonamide Antibiotics) (Verified Allergy, Unknown, 08/29/25) Scheduled Apixaban (Eliquis), 10 MG PO BID Ascorbic Acid (Ascorbic Acid), 1 TAB PO DAILY Atorvastatin Calcium (Atorvastatin Calcium), 10 MG PO DAILY, (Reported) Hydrochlorothiazide (Hydrochlorothiazide), 1 TAB PO DAILY, (Reported) Losartan Potassium (Losartan Potassium), 1 TAB PO DAILY Past Medical History Past Medical History: Peripheral Neuropathy, Seizures, High Cholesterol, Hypertension Past Surgical History: noncontributory Patient History: FHx: diabetes mellitus Alcohol Use: None Drug Use: none Lives with: Alone Lives In: Home Review of Systems All Other Systems at this time: Reviewed and Negative ROS As stated above in the HPI, otherwise all systems are reviewed and negative. Physical Exam Vital Signs: RN Vital Signs have been reviewed: Yes, Temperature: 98.0, Source: Temporal, Heart Rate: 100, Respiratory Rate: 18, BP: 139/77, Pulse Oximetry: 98, Weight: 122.730 Oxygen Flow Rate: 0 Pulse Oximetry Reflects: adequate oxygenation Physical Exam General: Alert, no apparent distress. HEENT: PERRL, EOMI, no injection, moist mucous membranes. Respiratory: Lungs clear, no respiratory distress. Chest: No accessory muscle use. Cardiovascular: Regular rate and rhythm, no murmurs. Gastrointestinal: Soft, nontender, nondistended. Bowels sounds present. Skin: Pale, warm and dry. Lower extremity pitting edema, 1+ Extremities: Normal range of motion, no deformity. poor healing wounds with serous drainage bilateral lower extremities with notable blister on the left lower extremity. Neurologic: Oriented x4. Psychiatric: Normal mood and affect. Progress Results/Orders Reviewed/noted all lab results: Yes Results/Orders Orders - ANTONETTE REEDP Saline Lock (08/29/25 15:47) Normal Saline 1000ml (0.9% Sodium Chlori (08/29/25 16:50) Page Hospitalist (08/29/25 17:08) Fill Out Med Reconciliation (08/29/25 17:08) Completed Orders - ANTONETTE REEDP PTT (08/29/25 15:47) Pt Inr (08/29/25 15:47) Type And Screen (08/29/25 15:47) Electrocardiogram (08/29/25 15:47) Lrpc - No Active Bleeding (08/29/25 15:47) PBNP (08/29/25 15:59) Medications Received in ER Medications (Trade) Dose Ordered Sig/Christiano Route PRN Reason Start Time Stop Time Status Last Admin Dose Admin Sodium Chloride 1,000 ml @ 1,000 mls/hr ONCE ONCE IV 08/29/25 16:50 08/29/25 17:49 08/29/25 17:00 1,000 MLS/HR Vital Signs 08/29/25 08/29/25 08/29/25 08/29/25 13:34 15:54 17:15 17:29 Temp 98.0 97.9 98.7 Pulse 100 81 81 84 Resp 18 16 17 13 B/P (MAP) 139/77 144/82 (102) 105/56 96/47 Pulse Ox 98 99 O2 Flow Rate 0 0 08/29/25 08/29/25 17:30 17:32 Temp 98.7 Pulse 81 Resp 13 B/P (MAP) 96/47 104/63 Laboratory Tests Test 08/29/25 15:03 08/29/25 15:40 08/29/25 16:08 08/29/25 16:41 White Blood Count 6.4 Red Blood Count 3.86 L Hemoglobin 6.6 *L Hematocrit 22.1 L Mean Corpuscular Volume 57.3 L Mean Corpuscular Hemoglobin 17.1 L Mean Corpuscular Hemoglobin Concent 29.8 L Red Cell Distribution Width 20.7 H Platelet Count 284 Mean Platelet Volume 8.3 Neutrophils (%) (Auto) 76.7 H Lymphocytes (%) (Auto) 13.5 L Monocytes (%) (Auto) 8.3 Eosinophils (%) (Auto) 1.2 Basophils (%) (Auto) 0.3 Neutrophils # (Auto) 4.9 Lymphocytes # (Auto) 0.9 L Monocytes # (Auto) 0.5 Eosinophils # (Auto) 0.1 Basophils # (Auto) 0.0 CBC Comment Platelet Estimate Normal Red Blood Cell Morphology Perf Polychromasia 1+ Hypochromasia 3+ Basophilic Stippling Anisocytosis 3+ Microcytosis 3+ Target Cells Few Tear Drop Cells Few Elliptocytes Few Sodium Level 141 Potassium Level 3.8 Chloride Level 105 Carbon Dioxide Level 26.6 Anion Gap 9 Blood Urea Nitrogen 9 Creatinine 0.94 Estimated GFR/1.73 m2 85 BUN/Creatinine Ratio 9.6 L Glucose Level 110 H Lactic Acid Level 3.4 H 2.8 H Calcium Level 9.0 Albumin 3.6 Procalcitonin 0.30 Chemistry Comments Urine Specimen Description Cln catch midstream Urine Color Yellow Urine Clarity Clear Urine pH 7.5 Urine Specific Odonnell 1.015 Urine Protein Negative Urine Glucose (UA) Negative Urine Ketones Negative Urine Occult Blood Negative Urine Nitrite Negative Urine Bilirubin Negative Urine Urobilinogen 2.0 H Urine Leukocyte Esterase Negative Urine Culture Indicated Not ind Volume Urine Centrifuged 10 ml Urine Comment Prothrombin Time 9.8 INR International Normalized Ratio 1.0 Activated Partial Thromboplast Time 22 Coagulation Comments Pro-B-Type Natriuretic Peptide < 30 Microbiology Date/Time Source Procedure Growth Status 08/29/25 15:12 Blood Arm Left Blood Culture - Preliminary NEGATIVE (LESS THAN 24 HOURS) Resulted EKG/XRAY/CT/US/VASC/MRI EKG : Additional Comment Electrocardiogram: as interpreted by me; normal sinus rhythm, no axis deviation, no acute ischemia, normal intervals, no pre-excitation pattern. Rate: 96 Chest X-Ray : Additional Comments Chest x-ray: as interpreted by me; no large effusion, no large infiltrate, normal mediastinum. Medical Decision Making Additional information obtaine: old records Findings Presents with bilateral lower extremity edema and wounds. There is some serous drainage from both wounds. No obvious signs of infection. He denies any pain to the wounds but he does have a history of neuropathy in both of his legs and feet. He denies being diabetic. Labs reveal that his hemoglobin is 6.6 and hematocrit is 22.1 indicating micro said it iron deficiency anemia. He denies having any GI bleed symptoms. I ordered a type and cross as well as 1 unit PRBC. He has lactic was also elevated at 3.4 but his vitals are stable. 1 L NS given. ProBNP was normal despite the bilateral lower extremity edema. He does have some shortness of breath upon exertion and he is very pale in color. Has had a blood transfusion in the past due to anemia. He is supposed to be on an iron supplement but has not taken it in the past 5-6 months. Initiated admission for blood transfusion, elevated lactic acid and wound care. Dr. Bah accepted admission. Differential Dx:Considerations: Include: Abscess, Cellulitis, Healing wound Additional Comment GI bleed. Departure Disposition: ADMITTED INPATIENT Impression: Primary Impression: Anemia Additional Impression: Wound Referrals: NO PRIMARY CARE PROVIDER (PCP) Additional Comment Medical Screen Exam This patient recieved a medical screening examination. After reviewing the individual's medical complaints with presenting symptoms and performing an appropriate physical examination, it was determined that no immediate life- threatening emergency medical condition is present. This individual is also not a women having contractions. Signature Scribe Signature: . Attestation: Scribed for Antonette Reed Mark Up Designer by Antonette Dumas NP . 08/29/25 17:48 Parts of this note were created using [employer] voice recognition software program. While efforts were made to correct any mistakes made by this voice recognition software program, nonsensical phrases may remain in this note. In addition, there may be errors and syntax, grammar, content and spelling. CARON JENKINS TELEPATHIST Aug 29, 2025 14:29 ANTONETTE REED DOPEMAN Aug 29, 2025 16:48
--- NOTE | 2025-08-29 15:09 | RADIOLOGY REPORT ---
CHEST RADIOGRAPH INDICATION: htn TECHNIQUE: Single frontal view of the chest was obtained COMPARISON: CHEST,SINGLE VIEW on DOS: 01/04/23, CHEST,SINGLE VIEW on DOS: 05/06/22 FINDINGS: Lines and Tubes: None Lungs: No focal consolidation. Pleura: No effusion. No pneumothorax. Cardiomediastinal contours: Unremarkable Bones: No acute osseous abnormality. IMPRESSION: No acute cardiopulmonary disease.
[2025-08-29 15:12] LABS: MEAN PLATELET VOLUME 8.3 FL (7.4-10.4)
[2025-08-29 15:22] LABS: CREATININE 0.94 MG/DL (0.60-1.10); TOTAL CARBON DIOXIDE 26.6 MMOL/L (24-32); eCRCL 103 ML/MIN; eGFR 85 ML/MIN
[2025-08-29 15:28] LABS: RED CELL DISTRIBUTION WIDTH 20.7 % (11.5-14.5)
[2025-08-29 15:42] LABS: PLATELET ESTIMATE NORMAL
[2025-08-29 15:44] LABS: ELLIPTOCYTES FEW
[2025-08-29 16:19] LABS: LEUKOCYTE ESTERASE ,URINE NEGATIVE (Neg); NITRITES, URINE NEGATIVE (Neg); OCCULT BLOOD,URINE NEGATIVE (Neg)
--- NOTE | 2025-08-29 16:19 | ELECTROCARDIOGRAPH REPORT ---
[facility] Test Date: 2025-08-29 Test Time: 16:16:28 Pat Name: OG GUIDRY Department: [facility] Patient ID: [id number] Room: Gender: M Flat Ironer: : 1975 Requested By: ALEJANDRA REED Order Number: [id number] Reading MD: Measurements Intervals [place] Rate: 89 P: 3 SC: 133 QRS: 39 QRSD: 103 T: 10 QT: 358 QTc: 436 Interpretive Statements Sinus rhythm Baseline wander in lead(s) V2 Please click the below link to view image of tracing.
[2025-08-29 16:23] LABS: UA COLLECTION TYPE CLN CATCH MIDSTREAM
[2025-08-29 16:31] LABS: APTT 22 SECONDS (22-32); INR 1.0 INR
[2025-08-29] MEDS: normal saline 1000ml 1,000 ML IV ONE (17:00)
[2025-08-29 17:15] VITALS: BP 105/56; PULSE 81; RESP 17; TEMP 97.9
[2025-08-29 17:29] VITALS: BP 96/47; PULSE 84; RESP 13; TEMP 98.7
[2025-08-29 17:30] VITALS: BP 96/47; PULSE 81; RESP 13; TEMP 98.7
[2025-08-29 17:32] VITALS: BP 104/63
[2025-08-29] MEDS ORDERED: vancomycin inj 1,000 MG in normal saline 250ml IV soln 250 ML IV ONE (18:10)
[2025-08-29] MEDS ORDERED: ondansetron/PF 4mg/2ml inj IV PRN (18:10)
[2025-08-29] MEDS ORDERED: magnesium hydroxide 30ml (MOM) UD suspension PO PRN (18:10)
[2025-08-29] MEDS ORDERED: mag hydrox/Alum hydrox/simeth 30ml oral suspension PO PRN (18:10)
[2025-08-29] MEDS ORDERED: potassium Cl 40MEQ/1/2NS 520ml 520 ML IV PRN (18:10)
[2025-08-29] MEDS ORDERED: potassium Cl 20 mEq SR tablet PO PRN (18:10)
[2025-08-29] MEDS ORDERED: magnesium sulf-water 2g/50mL 50 ML IV PRN (18:10)
[2025-08-29] MEDS ORDERED: HYDROmorphone/PF 0.2 MG/ML SYRINGE IV PRN (18:10)
[2025-08-29] MEDS ORDERED: magnesium sulf-water 4G/100mL 100 ML IV PRN (18:10)
[2025-08-29] MEDS ORDERED: HYDROcodone/acetaminophen 10/325mg tab PO PRN (18:10)
[2025-08-29] MEDS ORDERED: HYDROmorphone inj. 0.5 MG/0.5 ML DISP.SYRIN IV PRN (18:10)
[2025-08-29 18:14] VITALS: BP 135/79; PULSE 102; RESP 14; TEMP 98.5
--- NOTE | 2025-08-29 18:24 | HISTORY AND PHYSICAL ---
History & Physical Providers to CC ~ History of Present Illness Reason for Admit\Complaint: Lower extremity wounds/ iron-deficiency anemia History of Present Illness This is a 50-year-old male who presents to the ED with a two week history of lower extremity wounds. The patient has chronic lymphedema/lower extremity edema and noticed that there was a blister on his calf bilaterally that drained initially clear fluids however the area bilaterally started to get red and scab over and the color of the drainage became much more cloudy. The patient denies any fever or chills. He is not taking any oral or systemic antibiotics and only has treated this with topical antibiotics. The patient also presents with a drop in his hemoglobin currently 6.6 the patient has a EGD in 2021 that demonstrated gastritis with no active bleeding in his colonoscopy striated large internal hemorrhoid as well as external hemorrhoids. The patient did have a significantly low iron level as well and was on p.o. iron however he stopped taking his p.o. iron recently. The patient notices intermittent blood in his stool however no recent melena or hematochezia is present. Allergies: Coded Allergies: Penicillins (Verified Allergy, Unknown, HIVES, 08/29/25) Sulfa (Sulfonamide Antibiotics) (Verified Allergy, Unknown, 08/29/25) Home Medications Home Medications Active Losartan Potassium 100 Mg Tablet 1 Tab PO DAILY 30 Days Ascorbic Acid 500 Mg Tablet 1 Tab PO DAILY 30 Days Eliquis (Apixaban) 5 Mg Tablet 10 Mg PO BID Take 10 mg twice a day tonight(01/09/2023) then 10 mg tomorrow morning and tomorrow evening(01/10/2023) then 10 mg on the morning of 01/11/2023 and then from the evening of 01/11/2023 drop the dose to 5 mg twice a day thereafter. Reported Hydrochlorothiazide 12.5 Mg Tablet 1 Tab PO DAILY Atorvastatin Calcium 10 Mg Tablet 10 Mg PO DAILY Past Medical History Past Medical History Hypertension Hyperlipidemia Iron-deficiency anemia Gastritis Pulmonary embolism Past Surgical History Surgical History Comment Appendectomy Pilonidal cyst removal EGD with biopsy Colonoscopy Family History Family History: FH: CHF (congestive heart failure) MOTHER (CHF, GALL BLADDER DISEASE, NEUROPATHY, ) FHx: diabetes mellitus Maternal grandmother Brother Past Social History Social History Comment Nonsmoker, does not drink alcohol or use illicit drugs. Full code status. ROS ROS Except for positives in the HPI the rest of the 14 point review systems is negative Exam Vitals: Vital Signs Date Time Temp Pulse Resp B/P (MAP) Pulse Ox O2 Delivery O2 Flow Rate FiO2 08/29/25 18:14 98.5 102 14 135/79 08/29/25 17:58 100 0 General: Gen. No acute distress alert and oriented 4 Lungs clear to ascultation bilaterally, no wheezes rales or rhonchi appreciated Heart normal sinus rhythm no murmurs rubs or clicks noted Abdomen soft, mildly distended, nontender bowel sounds are normoactive Lower extremities no clubbing cyanosis, 1+ pitting edema bilaterally, left distal lower extremity mid cotto 5 x 5 cm area of excoriation with surrounding erythema, right distal lower extremity mid calf 5 x 5 cm area of excoriation with surrounding erythema Diagnostic Data Last Recorded Lab Results: 08/29/25 1503 08/29/25 1503 Diagnostic Data: Laboratory Tests Test 08/29/25 16:08 Prothrombin Time 9.8 SECONDS (9.0-12.0) INR International Normalized Ratio 1.0 INR Activated Partial Thromboplast Time 22 SECONDS (22-32) Coagulation Comments Advance Care Planning Advanced Care plannin - 30 Minutes Problems: (1) Anemia Status: Acute Additional Plan # bilateral lower extremity wounds/cellulitis IV vancomycin IV Rocephin Wound care consult # hypertension # hyperlipidemia Awaiting med reconciliation # iron-deficiency anemia # gastritis # internal and external hemorrhoids B.i.d. IV Protonix Serum iron level Monitor daily CBC NPO after midnight will discuss in the a.m. with Gastroenterology for possible EGD # history of pulmonary embolism No signs of an acute pulmonary embolism Monitor O2 sats and any dyspnea # DVT prophylaxis SQ Lovenox I spent a total of 17 minutes on reviewing various resuscitative measures/ ACP with the patient at the time of admission. The patient has decided on full code status Date of Service: Aug 29, 2025 Billing Provider: LUCIO RIOS DO Common Visit Codes: 03805-[id number] INP/OBS CARE (HIGH) Secondary Visit Codes: 57737-HIMESSYN CARE PLAN 30 MINUTES Problem Qualifiers (1) Anemia: Anemia type: iron deficiency Iron deficiency anemia type: unspecified iron deficiency Qualified Codes: D50.9 - Iron deficiency anemia, unspecified LUCIO RIOS DO Aug 29, 2025 18:24
[2025-08-29] MEDS ORDERED: vancomycin/NS 1 GM ADD-VANTAGE 250 ML IV SCH (19:00)
[2025-08-29] MEDS ORDERED: pantoprazole 40MG/NS 100ML BAG 100 ML IV SCH (20:00)
[2025-08-29] MEDS: docusate sod 100mg capsule PO SCH (20:00)
[2025-08-29] MEDS: K and/or MAG REPLACEMENT MC SCH (20:00)
[2025-08-29] MEDS: CefTRIAXone/D5W-Rocephin 1gm 50 ML IV ONE (21:19)
[2025-08-29 22:00] VITALS: BP 148/90; PULSE 107; RESP 24; TEMP 97.5; O2SAT 99
[2025-08-29] MEDS: vancomycin/NS 1 GM ADD-VANTAGE 250 ML IV SCH (22:38)
[2025-08-29] MEDS: enoxaparin 40mg/0.4ml syringe SQ SCH (22:39)
[2025-08-30 05:55] LABS: % IRON SATURATION 6 % (11-46)
[2025-08-30 06:00] VITALS: BP 109/54; PULSE 101; RESP 18; TEMP 97.7; O2SAT 97
[2025-08-30 06:03] LABS: CREATININE 0.97 MG/DL (0.60-1.10); TOTAL CARBON DIOXIDE 26.9 MMOL/L (24-32); eCRCL 100 ML/MIN; eGFR 82 ML/MIN
[2025-08-30 06:09] LABS: MEAN PLATELET VOLUME 9.0 FL (7.4-10.4)
[2025-08-30 07:18] LABS: RED CELL DISTRIBUTION WIDTH 23.1 % (11.5-14.5)
[2025-08-30 07:43] LABS: PLATELET ESTIMATE NORMAL
[2025-08-30] MEDS: potassium Cl 20 mEq SR tablet PO PRN (07:46)
[2025-08-30] MEDS: CefTRIAXone/D5W-Rocephin 1gm 50 ML IV SCH (09:28)
[2025-08-30 10:00] VITALS: BP 137/79; PULSE 102; RESP 18; TEMP 98.7; O2SAT 96
[2025-08-30] MEDS: iron sucrose complex injection 300 MG in normal saline 250ml IV soln 250 ML IV SCH (11:01)
[2025-08-30] MEDS: vancomycin/NS 1 GM ADD-VANTAGE 250 ML IV SCH (15:56)
--- NOTE | 2025-08-30 16:40 | PROGRESS NOTE ---
Daily Progress Note Providers to CC ~ Antibiotic Timeout Antibiotic Ordered?: Yes Subjective The patient denies any pain in his lower extremities bilaterally the erythema is slightly improving as well. The patient has iron studies came back and the patient has iron-deficiency however improved from previous iron studies IV Venofer is ordered and I spoke with Dr. Michaels and informed me that the patient will go for an EGD in the a.m. Objective Vital Signs Date Time Temp Pulse Resp B/P (MAP) Pulse Ox O2 Delivery O2 Flow Rate FiO2 08/30/25 10:00 98.7 102 18 137/79 (98) 96 Room Air 08/30/25 08:00 0.0 Result Diagram: 08/30/25 0442 08/30/25 0442 Coagulation Studies Laboratory Tests Test 08/29/25 16:08 Prothrombin Time 9.8 SECONDS (9.0-12.0) INR International Normalized Ratio 1.0 INR Activated Partial Thromboplast Time 22 SECONDS (22-32) Coagulation Comments Problem\Assessment\Plan Problems/Diagnosis: (1) Anemia # bilateral lower extremity wounds/cellulitis IV vancomycin IV Rocephin Wound care consult # hypertension # hyperlipidemia Restart losartan Hold hydrochlorothiazide since blood pressure is for the most part within normal limits if not slightly low # iron-deficiency anemia # gastritis # internal and external hemorrhoids B.i.d. IV Protonix Serum iron level Monitor daily CBC 08/30 status post transfusion of 1 unit of packed red blood cells hemoglobin improved to 7.2 IV Venofer I spoke with Dr. Michaels Site Identification Specialist and informed me to make the patient NPO for an EGD in the a.m. # history of pulmonary embolism No signs of an acute pulmonary embolism Monitor O2 sats and any dyspnea # DVT prophylaxis SQ Lovenox Full code status Date of Service: Aug 30, 2025 Billing Provider: LUCIO RIOS DO Common Visit Codes: [id number] INP/OBS CARE(HIGH) Problem Qualifiers (1) Anemia: Qualified Codes: D50.9 - Iron deficiency anemia, unspecified LUCIO RIOS DO Aug 30, 2025 16:40
[2025-08-30 18:00] VITALS: BP 136/81; PULSE 94; RESP 18; TEMP 98.9; O2SAT 100
[2025-08-30] MEDS ORDERED: VANCOMYCIN LEVEL IV ONE (18:30)
[2025-08-30 19:00] VITALS: RESP 18
[2025-08-30 22:00] VITALS: BP 141/80; PULSE 94; RESP 12; TEMP 97.9; O2SAT 98
[2025-08-30] MEDS: VANCOMYCIN LEVEL IV ONE (22:30)
[2025-08-31] VITALS (13 sets, daily range): BP systolic 94–152; BP diastolic 50–90; PULSE 87–101; RESP 14–23; TEMP 97.5–98.4; O2SAT 93–100
[2025-08-31 05:56] LABS: MEAN PLATELET VOLUME 8.3 FL (7.4-10.4); RED CELL DISTRIBUTION WIDTH 23.3 % (11.5-14.5)
[2025-08-31 05:59] LABS: CREATININE 0.92 MG/DL (0.60-1.10); TOTAL CARBON DIOXIDE 27.2 MMOL/L (24-32); eCRCL 105 ML/MIN; eGFR 87 ML/MIN
--- NOTE | 2025-08-31 07:18 | CONSULTATION ---
DATE OF CONSULTATION: 08/30/2025 DICTATING PHYSICIAN: Sabina Michaels MD REASON FOR CONSULTATION: Iron deficiency anemia. HISTORY OF PRESENT ILLNESS: The patient was admitted with lower extremity wound, has a history of chronic lymphedema and lower extremity edema, apparently came in with a blister on his calf, which drained serosanguineous and bloody discharge. Denies fever or chills. Incidentally, he was found to have severe anemia with hemoglobin of 6.6 and severely low MCV. His hemoglobin was 6.6, hematocrit 22, MCV was 53.7. Subsequently, he received a unit of packed blood cells that went up to 7.2 and 24.2. MCV is still at 61. The patient does not have any history of obvious GI bleeding. Still stool hemoccult test has not been done. Iron profile is consistent with iron deficiency with low iron, high TIBC and low protein saturation. I do not have a ferritin value at this time. PAST MEDICAL HISTORY: Hypertension, history of pulmonary embolism, and hyperlipidemia. He has been on Eliquis for pulmonary embolism. FAMILY HISTORY AND PERSONAL HISTORY: Noncontributory. REVIEW OF SYSTEMS: A 12-point review of systems essentially the same as history of present illness. PHYSICAL EXAMINATION: GENERAL: He is alert, oriented, and appears to be in no apparent distress. VITAL SIGNS: Normal. NECK: Supple. No thyromegaly. No JVD. No significant lymphadenopathy. HEENT: Oral cavity within normal limits. HEART AND LUNGS: Normal. ABDOMEN: Soft, nontender. No masses. No organomegaly. Bowel sounds are present. EXTREMITIES: Lower extremities does show 1+ pitting pedal edema with 5.5 cm of excoriation and erythema. LABORATORY VALUES: As above. IMPRESSION: A 50-year-old gentleman admitted with lower extremity wound and incidentally has iron deficiency anemia. This is very consistent. The iron parameters are very consistent with iron deficiency anemia. He will need bidirectional endoscopic workup, although done a few years ago. RECOMMENDATIONS: Endoscopy tomorrow and possibly follow with colonoscopy the day after. The risks and benefits explained, understands and wishes to proceed. Further recommendations were made after the endoscopic procedures. Sabina Michaels MD TID: [id number] RECEIPT: [id number] PC/[facility]
[2025-08-31] MEDS ORDERED: VANCOmycin 1250MG/NS 250ml Bag 250 ML IV SCH (08:00)
[2025-08-31] MEDS ORDERED: MIDAZolam 1 MG/ML 5ML VIAL ONE (12:11)
[2025-08-31] MEDS ORDERED: fentaNYL/PF 50MCG/1 ML 2ML syringe ONE (12:11)
[2025-08-31] MEDS ORDERED: LIDOcaine 2% Viscous 15ml cup ONE (12:11)
[2025-08-31] MEDS: CefTRIAXone/D5W-Rocephin 1gm 50 ML IV SCH (14:41)
[2025-08-31 14:54] LABS: MEAN PLATELET VOLUME 8.7 FL (7.4-10.4); RED CELL DISTRIBUTION WIDTH 26.3 % (11.5-14.5)
[2025-08-31] MEDS: VANCOmycin 1250MG/NS 250ml Bag 250 ML IV SCH (15:38)
[2025-08-31] MEDS ORDERED: PEG 3350/Na sulf,bicarb,Cl/KCl oral sol 4 liter bottle PO ONE (16:40)
[2025-08-31] MEDS: PEG 3350/Na sulf,bicarb,Cl/KCl oral sol 4 liter bottle PO ONE (18:27)
--- NOTE | 2025-08-31 20:16 | PROGRESS NOTE ---
Daily Progress Note Providers to CC ~ Antibiotic Timeout Antibiotic Ordered?: Yes Subjective The patient went for an EGD today and was discovered to have nodules in the stomach that were biopsied the patient will be going for colonoscopy in the a.m.- the erythema in his lower extremities is improving with IV antibiotics. The patient has no acute complaints Objective Vital Signs Date Time Temp Pulse Resp B/P (MAP) Pulse Ox O2 Delivery O2 Flow Rate FiO2 08/31/25 18:00 97.7 97 15 126/78 (94) 98 Room Air 08/31/25 12:38 0.0 Result Diagram: 08/31/25 1415 08/31/25 0525 Coagulation Studies Laboratory Tests Test 08/29/25 16:08 Prothrombin Time 9.8 SECONDS (9.0-12.0) INR International Normalized Ratio 1.0 INR Activated Partial Thromboplast Time 22 SECONDS (22-32) Coagulation Comments Problem\Assessment\Plan Problems/Diagnosis: (1) Anemia # bilateral lower extremity wounds/cellulitis IV vancomycin IV Rocephin Wound care consult 08/31 improving # hypertension # hyperlipidemia Restart losartan Hold hydrochlorothiazide since blood pressure is for the most part within normal limits if not slightly low # iron-deficiency anemia # gastritis # internal and external hemorrhoids B.i.d. IV Protonix Serum iron level Monitor daily CBC 08/30 status post transfusion of 1 unit of packed red blood cells hemoglobin improved to 7.2 IV Venofer I spoke with Dr. Michaels Refrigerator Mover and informed me to make the patient NPO for an EGD in the a.m. 08/31 status post EGD- gastric nodules were discovered and biopsied- bowel prep was started this afternoon anticipation of a EGD in the a.m.. The patient was transfused an additional unit of packed red blood cells this morning has a hemoglobin dropped to 6.8 status post transfusion hemoglobin now is 8.2 # history of pulmonary embolism No signs of an acute pulmonary embolism Monitor O2 sats and any dyspnea # DVT prophylaxis SQ Lovenox Full code status Date of Service: Aug 31, 2025 Billing Provider: LUCIO RIOS DO Common Visit Codes: [id number] INP/OBS CARE(HIGH) Problem Qualifiers (1) Anemia: Qualified Codes: D50.9 - Iron deficiency anemia, unspecified LUCIO RIOS DO Aug 31, 2025 20:16
[2025-08-31] MEDS: docusate sodium 100mg/10ml UD cup PO SCH (21:08)
[2025-09-01] VITALS (16 sets, daily range): BP systolic 96–145; BP diastolic 62–85; PULSE 76–100; RESP 13–18; TEMP 97.4–98.6; O2SAT 92–99
[2025-09-01 06:14] LABS: MEAN PLATELET VOLUME 8.4 FL (7.4-10.4); RED CELL DISTRIBUTION WIDTH 26.9 % (11.5-14.5)
[2025-09-01 06:26] LABS: CREATININE 1.05 MG/DL (0.60-1.10); TOTAL CARBON DIOXIDE 27.3 MMOL/L (24-32); eCRCL 92 ML/MIN; eGFR 75 ML/MIN
[2025-09-01] MEDS ORDERED: propofol inj 20 ML IV ONE ×3 (08:44)
[2025-09-01] MEDS: VANCOMYCIN LEVEL IV ONE (14:35)
[2025-09-01 15:05] LABS: MEAN PLATELET VOLUME 8.3 FL (7.4-10.4); RED CELL DISTRIBUTION WIDTH 27.2 % (11.5-14.5)
[2025-09-01] MEDS ORDERED: vancomycin inj. 750 MG in normal saline 250ml IV soln 250 ML IV SCH (16:00)
[2025-09-01] MEDS: pantoprazole 40mg Tablet.DR PO SCH (19:49)
[2025-09-01] MEDS: vancomycin inj. 750 MG in normal saline 250ml IV soln 250 ML IV SCH (19:49)
--- NOTE | 2025-09-01 20:07 | PROGRESS NOTE ---
Daily Progress Note Providers to CC ~ Antibiotic Timeout Antibiotic Ordered?: Yes Subjective The patient has a colonoscopy today in his discovered that he has diverticulitis however no etiology for the patient's anemia was found. After initial drop in hemoglobin this morning the hemoglobin has stabilized. Objective Vital Signs Date Time Temp Pulse Resp B/P (MAP) Pulse Ox O2 Delivery O2 Flow Rate FiO2 09/01/25 18:00 98.6 76 18 145/77 (99) 95 Room Air 09/01/25 09:50 0.0 Result Diagram: 09/01/25 1430 09/01/25 0553 Gen. No acute distress alert and oriented 4 Lungs clear to ascultation bilaterally, no wheezes rales or rhonchi appreciated Heart normal sinus rhythm no murmurs rubs or clicks noted Abdomen soft, mildly distended, nontender bowel sounds are normoactive Lower extremities no clubbing cyanosis, 1+ pitting edema bilaterally, left distal lower extremity mid cotto 5 x 5 cm area of excoriation with surrounding erythema, right distal lower extremity mid calf 5 x 5 cm area of excoriation with surrounding erythema Coagulation Studies Laboratory Tests Test 08/29/25 16:08 Prothrombin Time 9.8 SECONDS (9.0-12.0) INR International Normalized Ratio 1.0 INR Activated Partial Thromboplast Time 22 SECONDS (22-32) Coagulation Comments Problem\Assessment\Plan Problems/Diagnosis: (1) Anemia # bilateral lower extremity wounds/cellulitis IV vancomycin IV Rocephin Wound care consult 08/31 improving # hypertension # hyperlipidemia Restart losartan Hold hydrochlorothiazide since blood pressure is for the most part within normal limits if not slightly low 09/01 blood pressure remains under acceptable control # iron-deficiency anemia # gastritis # internal and external hemorrhoids B.i.d. IV Protonix Serum iron level Monitor daily CBC 08/30 status post transfusion of 1 unit of packed red blood cells hemoglobin improved to 7.2 IV Venofer I spoke with Dr. Michaels Athletic Director and informed me to make the patient NPO for an EGD in the a.m. 08/31 status post EGD- gastric nodules were discovered and biopsied- bowel prep was started this afternoon anticipation of a EGD in the a.m.. The patient was transfused an additional unit of packed red blood cells this morning has a hemoglobin dropped to 6.8 status post transfusion hemoglobin now is 8.2 09/01 hemoglobin dropped this morning 7.5 however recheck on hemogram his hemoglobin was 7.6 in the afternoon the patient went for colonoscopy in his discovered diverticulitis however there was no etiology found for the patient has GI bleed # history of pulmonary embolism No signs of an acute pulmonary embolism Monitor O2 sats and any dyspnea # hypokalemia Potassium replacement protocol is ordered # DVT prophylaxis SQ Lovenox Full code status Date of Service: Sep 01, 2025 Billing Provider: LUCIO RIOS DO Common Visit Codes: [id number] INP/OBS CARE(HIGH) Problem Qualifiers (1) Anemia: Qualified Codes: D50.9 - Iron deficiency anemia, unspecified LUCIO RIOS DO Sep 01, 2025 20:07
[2025-09-02 06:00] VITALS: BP 124/72; PULSE 92; RESP 17; TEMP 98.5; O2SAT 97
[2025-09-02 06:57] LABS: CREATININE 0.97 MG/DL (0.60-1.10); TOTAL CARBON DIOXIDE 26.4 MMOL/L (24-32); eCRCL 100 ML/MIN; eGFR 82 ML/MIN
[2025-09-02 06:58] LABS: MEAN PLATELET VOLUME 8.4 FL (7.4-10.4)
[2025-09-02 07:19] LABS: RED CELL DISTRIBUTION WIDTH 26.6 % (11.5-14.5)
[2025-09-02] MEDS ORDERED: normal saline 1000ml 1,000 ML IV SCH (08:25)
[2025-09-02 08:37] LABS: PLATELET ESTIMATE NORMAL
[2025-09-02 08:38] LABS: ELLIPTOCYTES FEW
[2025-09-02 10:00] VITALS: BP 132/74; PULSE 93; RESP 18; TEMP 98.5; O2SAT 95
[2025-09-02] MEDS ORDERED: potassium Cl 40MEQ/1/2NS 520ml 520 ML IV PRN (10:00)
[2025-09-02] MEDS ORDERED: potassium Cl 20 mEq SR tablet PO PRN (10:00)
[2025-09-02] MEDS: potassium Cl 20 mEq SR tablet PO PRN (10:27)
[2025-09-02 15:01] LABS: CREATININE 1.10 MG/DL (0.60-1.10); TOTAL CARBON DIOXIDE 25.2 MMOL/L (24-32); eCRCL 88 ML/MIN; eGFR 71 ML/MIN
[2025-09-02] MEDS ORDERED: CEFD300C3 PO (15:12)
[2025-09-02] MEDS ORDERED: FER325T PO (15:12)
[2025-09-02] MEDS ORDERED: SACC250C PO (15:12)
[2025-09-02] MEDS ORDERED: VITC500T PO (15:12)
[2025-09-02] MEDS ORDERED: POTA-207 PO (15:16)
[2025-09-02] MEDS ORDERED: METR-159 PO (15:16)
[2025-09-02] MEDS ORDERED: sodium ferric gluc complex inj 250 MG in normal saline 100ml IV soln 100 ML IV ONE (15:55)
--- NOTE | 2025-09-02 16:11 | PROGRESS NOTE- Residence ---
Progress Note - Resident Providers to CC Resident Creating Document: SAVANA SHEPHERD, RES CC: YAO AGUIRRE MD ~ Central Line/PICC still needed: N\A Rock-Non Protocol Rock Indications Met/Not Met: F/C Indications Not Met Antibiotic Timeout Antibiotic Ordered?: No MRSA Education MRSA Education Provided to pt: N/A Subjective Patient was seen and examined today at bedside,she reports no acute complaints. Patient is doing well. Patient has iron deficiency anemia and suspected GI bleed, status post EGD done on08/31/2025 showing gastric nodules,which were biopsied and colonoscopy was done on09/01/2025 revealed diverticulosis without active bleeding. Hemoglobin is stable 7.5 after PRBC transfusions, IV iron and daily CBC monitoring.Patient is being discharged on p.o. iron. Await on gastric biopsy results, no further endoscopic intervention planned at this time. GI is signing off. Objective Vital Signs Date Time Temp Pulse Resp B/P (MAP) Pulse Ox O2 Delivery O2 Flow Rate FiO2 09/02/25 08:00 Room Air 09/02/25 07:35 92 09/02/25 06:00 98.5 17 124/72 (89) 97 09/01/25 09:50 0.0 Result Diagram: 09/02/25 0618 09/02/25 1431 Gen. No acute distress alert and oriented 4 Lungs clear to ascultation bilaterally, no wheezes rales or rhonchi appreciated Heart normal sinus rhythm no murmurs rubs or clicks noted Abdomen soft, mildly distended, nontender bowel sounds are normoactive Lower extremities no clubbing cyanosis, 1+ pitting edema bilaterally, left distal lower extremity mid cotto 5 x 5 cm area of excoriation with surrounding erythema, right distal lower extremity mid calf 5 x 5 cm area of excoriation with surrounding erythema Coagulation Studies Laboratory Tests Test 08/29/25 16:08 Prothrombin Time 9.8 SECONDS (9.0-12.0) INR International Normalized Ratio 1.0 INR Activated Partial Thromboplast Time 22 SECONDS (22-32) Coagulation Comments Other Results Chemistry Test 09/02/25 06:18 09/02/25 14:31 Albumin 2.8 G/DL (3.4-5.0) L 2.9 G/DL (3.4-5.0) L Calcium Level 8.4 MG/DL (8.5-10.1) L 8.4 MG/DL (8.5-10.1) L Magnesium Level 2.1 MG/DL (1.5-2.4) Counseling Services Smoking & Tobacco Cessation: > 10 Minutes Assessment Assessment A 50-year-old male with past medical history of chronic lymphedema , chronic lower extremity edema who apparently came in with a blister on his calf with a serosanguineous and bloody discharge was found to have iron-deficiency anemia. Iron-deficiency anemia workup was done. EGD was done on 08/31, showed gastric nodules which were biopsied. Colonoscopy was done on 09/01 which were diverticulosis without active bleeding . No active source of bleeding was found. Plan Plan Upper versus lower GI bleed-ruled out Iron-deficiency anemia Patient had EGD on 08/31- showed gastric nodules , biopsied Colonoscopy on 09/01, showed diverticulitis without any active bleeding Iron studies: Low iron, high TIBC, low ferritin, consistent with a iron- deficiency anemia Patient received 4 dose of IV Venofer therapy during the hospital stay He is being discharged currently on p.o. iron therapy Hemoglobin was trended during the hospital stay and is currently stable at around Plan Patient is being discharged on p.o. iron therapy, recommended to continue p.o. iron 325 mg b.i.d. for 30 days Follow up with PCP in 1 week for CBC Patient would require monitoring iron indices in 3-6 months Patient was advised to come to the ED immediately if he notices any of the following red flags, including blood in stools, tarry black stools, extreme fatigue, coffee-ground emesis, fever, tachycardia Gastritis Protonix twice daily Internal and external hemorrhoids Avoid constipation Use laxatives PRN for constipation Sitzbath if any symptoms arise Code Status: Full code status Savana Shepherd MD Internal Medicine Resident, PGY-2 Problem list Problem List: (1) Iron (Fe) deficiency anemia (2) Gastritis Date of Service: Sep 02, 2025 Billing Provider: YAO AGUIRRE MD, GAURAV, RES Sep 02, 2025 16:11
[2025-09-02] MEDS: VANCOMYCIN LEVEL IV ONE (16:16)
[2025-09-02] MEDS: potassium Cl 20 mEq SR tablet PO STA (17:21)
[2025-09-02] MEDS: Ensure Enlive - 237ML PO SCH (17:53)
[2025-09-02] MEDS ORDERED: PANT-47 PO (19:29)
--- NOTE | 2025-09-02 19:35 | DISCHARGE SUMMARY ---
Discharge Summary Providers to CC ~ Discharge Summary Admission Diagnosis: Anemia, lower extremity cellulitis Hospital Course DATE OF ADMISSION: 08/29/2025 DATE OF DISCHARGE: 09/02/2025 Discharge Diagnosis\Comment: Bilateral lower extremity wounds/cellulitis Hypertension Hyperlipidemia Iron-deficiency anemia Gastritis Diverticulitis Remote history of pulmonary embolism Hypokalemia Operations\Procedures: EGD with biopsy and colonoscopy with biopsy Consultants: Dr. Michaels road mixer operator Complications: none Condition on DC: Stable New Medications: Cefdinir* (Cefdinir*) 300 Mg Capsule 1 CAP PO Q12H, #14 CAP Metronidazole* (Flagyl*) 500 Mg Tablet 1 TAB PO Q8H, #21 TAB Potassium Chloride* (K-Dur*) 20 Meq Tab.prt.sr 1 TAB PO DAILY, #30 TAB Saccharomyces Boulardii (Florastor) 250 Mg Capsule 1 CAP PO Q12H, #20 CAP 0 Refills Ascorbic Acid* (Vitamin C*) 500 Mg Tablet 500 MG PO TID@0830,1230,1730, #90 TAB Ferrous Sulfate (Ferrous Sulfate) 325 Mg (65 Mg Iron) Tablet 325 MG PO TID@0830,1230,1730, #90 TAB Continued Medications: Hydrochlorothiazide (Hydrochlorothiazide) 12.5 Mg Tablet 1 TAB PO DAILY Losartan Potassium (Losartan Potassium) 100 Mg Tablet 1 TAB PO DAILY for 30 Days, #30 TAB Discharge Summary: I admitted Mr. Marin with the following HPI:This is a 50-year-old male who presents to the ED with a two week history of lower extremity wounds. The patient has chronic lymphedema/lower extremity edema and noticed that there was a blister on his calf bilaterally that drained initially clear fluids however the area bilaterally started to get red and scab over and the color of the drainage became much more cloudy. The patient denies any fever or chills. He is not taking any oral or systemic antibiotics and only has treated this with topical antibiotics. The patient also presents with a drop in his hemoglobin currently 6.6 the patient has a EGD in 2021 that demonstrated gastritis with no active bleeding in his colonoscopy striated large internal hemorrhoid as well as external hemorrhoids. The patient did have a significantly low iron level as well and was on p.o. iron however he stopped taking his p.o. iron recently. The patient notices intermittent blood in his stool however no recent melena or hematochezia is present. The patient had an EGD which demonstrated gastritis was on a Protonix drip and transitioned to p.o. Protonix- the patient also had a colonoscopy which demonstrated diverticulitis otherwise was unremarkable. The patient had received a total of 2 units of packed red blood cells during hospitalization his initial hemoglobin was 6.6 after the 1st transfusion hemoglobin improved to 7.2 and then downtrended to 6.8 the patient is transfused an additional unit of packed red blood cells in his hemoglobin remained stable on day discharge was 7.7. The patient iron studies demonstrated a serum iron 24 TIBC of 416 and% saturation of six the patient is treated with IV Venofer 300 mg daily during hospitalization and discharged with a prescription for ferrous sulfate one tablet t.i.d. along with service acid for better absorption. The patient has lower extremity wounds and was treated with IV Rocephin and IV vanco and was discharged with a prescription for cefdinir for seven days and metronidazole 500 mg q.8 hours for 21 days the metronidazole was also to treat the diverticulitis the patient did receive wound care to his lower extremities during hospitalization and was recommended to follow up with the Wound Care outpatient Clinic and will be referred to wound care the patient also received a prescription for discharge for Florastor probiotic. In his erythema had improved significantly during hospitalization in the point where he could be discharged on the The patient has a hypokalemia and was treated with a potassium replacement protocol and discharged with a prescription for KCl 20 mEq daily. Gen. No acute distress alert and oriented 4 Lungs clear to ascultation bilaterally, no wheezes rales or rhonchi appreciated Heart normal sinus rhythm no murmurs rubs or clicks noted Abdomen soft, mildly distended, nontender bowel sounds are normoactive Lower extremities no clubbing cyanosis, 1+ pitting edema bilaterally, left distal lower extremity mid cotto 5 x 5 cm area of excoriation with surrounding erythema, right distal lower extremity mid calf 5 x 5 cm area of excoriation with surrounding erythema The patient felt ready to be discharged and was medically cleared to be discharged on 09/02/2025 The patient was seen and evaluated on day of discharge. Time spent on discharge 35 minutes *Problems/Diagnosis: (1) Iron (Fe) deficiency anemia (2) Gastritis Total Time Spent on D/C: > 30 Minutes Date of Service: Sep 02, 2025 Billing Provider: LUCIO RIOS DO Common Visit Codes: 32829-FFH/OBS DISCH DAY >30min LUCIO RIOS DO Sep 02, 2025 19:35
[2025-09-02] MEDS ORDERED: K and/or MAG REPLACEMENT MC SCH (20:00)
--- NOTE | 2025-09-04 16:25 | ELECTROCARDIOGRAPH REPORT ---
[facility] [place] Test Date: 2025-08-29 Test Time: 16:17:20 Pat Name: OG GUIDRY Department: [facility] Patient ID: [id number] Room: ORTHO [facility] Gender: M Care Taker: : 1975 Requested By: ALEJANDRA REED Order Number: [id number] Reading MD: Dr. GEREMIAS Landry Measurements Intervals [place] Rate: 96 P: 62 [place]: 150 QRS: 44 QRSD: 90 T: 9 QT: 355 QTc: 449 Interpretive Statements Sinus rhythm Electronically Signed On 08-30-2025 13:53:[address] GEREMIAS Landry Please click the below link to view image of tracing.
== END 2025-09-02 19:17 | disposition home or self-care (01) | DRG 241 ==
LOC: ER 13:30 → ED HOLD 18:15 → ORTHO 4S 21:43
PROVIDERS: ADMIT Family Medicine; ATTEND Family Medicine
PROC: 30233N1 Transfusion of Nonautologous Red Blood Cells into Peripheral Vein, Percutaneous Approach (ICD-10-PCS; 2025-08-29)
PROC: 0DB68ZX Excision of Stomach, Via Natural or Artificial Opening Endoscopic, Diagnostic (ICD-10-PCS; principal; 2025-08-31 12:15)
PROC: 0DJD8ZZ Inspection of Lower Intestinal Tract, Via Natural or Artificial Opening Endoscopic (ICD-10-PCS; 2025-09-01)
PROC: 05HD33Z Insertion of Infusion Device into Right Cephalic Vein, Percutaneous Approach (ICD-10-PCS; 2025-09-01)
PROC: B54MZZA Ultrasonography of Right Upper Extremity Veins, Guidance (ICD-10-PCS; 2025-09-01)
DX: K29.71 Gastritis, unspecified, with bleeding (principal); K57.31 Diverticulosis of large intestine without perforation or abscess with bleeding; L03.115 Cellulitis of right lower limb; L03.116 Cellulitis of left lower limb; I10 Essential (primary) hypertension; D50.8 Other iron deficiency anemias; E78.00 Pure hypercholesterolemia, unspecified; E87.6 Hypokalemia; G62.9 Polyneuropathy, unspecified; K31.89 Other diseases of stomach and duodenum; K64.8 Other hemorrhoids; K64.4 Residual hemorrhoidal skin tags; Z79.899 Other long term (current) drug therapy; Z88.0 Allergy status to penicillin; Z88.2 Allergy status to sulfonamides; Z86.711 Personal history of pulmonary embolism
CPT/HCPCS: 36410; 36415; 36430; 43239; 45378; 71045; 76937; 80048; 80202; 81003; 83540; 83550; 83605; 83735; 83880; 84145; 85008; 85025; 85027; 85610; 85730; 86885; 86900; 86901; 86920; 87040; 87081; 93005; 99152; 99285; A4615; A4620; A6258; A6449; C1751; C1758; G0378; J0696; J1650; J1756; J2250; J2470; J2704; J3010; J3373; J3374; J7030; J7040; J7050; J7120; P9016